=== PATIENT | female | born 1965 | race Caucasian/White ===

== ENCOUNTER 2020-09-17 10:50 | Outpatient (REF) | payer OTHER, SELFPAY ==
--- NOTE | 2020-09-17 10:58 | US_ITS ---
EXAMINATION: TARGETED LEFT BREAST ULTRASOUND CLINICAL INFORMATION: Palpable mass and skin dimpling COMPARISON: Mammography of same day and mammography dating back to June 06, 2013 TECHNIQUE: Targeted left breast ultrasound FINDINGS: Targeted left breast ultrasound was then performed. Corresponding to the retroareolar palpable region is a 7 x 6 mm simple appearing cyst. In the 6:00 position approximately 3 cm from the nipple there is an irregular marginated hypoechoic lesion with distal sound shadowing measuring approximately 1.8 x 1.1 x 1.7 cm in size. Results are discussed with the patient at time of visit. Breast Center navigator notified referring physician's office talking to [place]. US/US breast LT complete IMPRESSION: Suspicious left breast lesion for which ultrasound-guided core biopsy is recommended. ASSESSMENT: BI-RADS 4: Suspicious RECOMMENDATION: Ultrasound-guided core biopsy left breast lesion
--- NOTE | 2020-09-17 10:58 | MM_ITS ---
EXAMINATION: MM DIAGNOSTIC DIGITAL MAMMOGRAPHY, BILATERAL Targeted left breast ultrasound CLINICAL INFORMATION: Retroareolar palpable region left breast. Skin dimpling. The lifetime risk of breast cancer based on the Tyrer-Cuzick Model is 9.0%. COMPARISON: Mammography: August 29, 2019 and studies dating back to June 06, 2013 TECHNIQUE: Digital mammography is performed in craniocaudal and mediolateral oblique views along with computer-aided detection (CAD). Targeted left breast ultrasound. FINDINGS: The breasts are extremely dense, which lowers the sensitivity of mammography (ACR BI-RADS breast composition Category d). There is a stable parenchymal pattern of the right breast with no new abnormal dominant mass or suspicious grouping of microcalcifications identified. Within the inferior aspect of the left breast at approximately 6:00 position 3 cm from nipple there is a large region of architectural distortion measuring approximately 3 cm in diameter which appears to contain some calcifications. Targeted left breast ultrasound was then performed. Corresponding to the retroareolar palpable region is a 7 x 6 mm simple appearing cyst. In the 6:00 position approximately 3 cm from the nipple there is an irregular marginated hypoechoic lesion with distal sound shadowing measuring approximately 1.8 x 1.1 x 1.7 cm in size. Results are discussed with the patient at time of visit. Breast Center navigator notified referring physician's office talking to [place]. MM/MM diagnostic mammo BI IMPRESSION: Suspicious left breast lesion for which ultrasound-guided core biopsy is recommended. ASSESSMENT: BI-RADS 4: Suspicious RECOMMENDATION: Ultrasound-guided core biopsy left breast lesion
== END 2020-09-17 10:51 | disposition home or self-care (01) ==
LOC: HO.MAMMO 10:50
PROVIDERS: PCP Internal Medicine; Visit Provider Internal Medicine
DX: N63.20 Unspecified lump in the left breast, unspecified quadrant (principal)
CPT/HCPCS: 76641; 77066

== ENCOUNTER 2020-09-29 09:26 | Outpatient (REF) | payer OTHER, SELFPAY ==
--- NOTE | 2020-09-29 | MM_ITS ---
EXAMINATION: ULTRASOUND GUIDED CORE BIOPSY BREAST, LEFT POST PROCEDURE DIGITAL MAMMOGRAM, LEFT CLINICAL INFORMATION: Subtle architectural changes posterior inferior left breast with mild skin dimpling. COMPARISON: Mammography and targeted left breast ultrasound 09/17/2020. FINDINGS: Proper informed consent is obtained from the patient after discussion of the procedure, potential risks and complications, and alternatives. Patient was given an opportunity for questions. The patient appeared to understand. The patient consented to the procedure and signed the consent form. GUIDANCE: Ultrasound-guided; aseptic technique. LESION: Irregular hypoechoic area posterior 6:00 left breast measuring approximately 2.4 x 1.8 cm. No clear tissue plane with chest wall by ultrasound. APPROACH: Mediolateral. ANESTHESIA: 18 mL 1% lidocaine. DERMATOTOMY: Single skin pat dermatotomy performed. NEEDLE: 14-gauge Achieve core biopsy device with 13.5-gauge co-axial guide needle. CORES: 6. CLIP: HydroMARK; shape: butterfly. POST PROCEDURE UNILATERAL DIGITAL MAMMOGRAM: The post biopsy mammogram is performed in separate room using separate digital mammography equipment from the biopsy procedure. CC and ML views are obtained. The breasts are extremely dense, which lowers the sensitivity of mammography (breast composition category: d). The clip marker is in position. No gross hematoma. The patient tolerated the procedure well. No immediate complications. Home instructions reviewed with the patient. Final pathology results are pending. MM/MM diagnostic mammo unilat LT IMPRESSION: 1. Status post ultrasound-guided core biopsy left breast. 2. Clip placed: HydroMARK; shape: butterfly. 3. Pathology pending. An addendum report will be issued.
--- NOTE | ~2020-09-29 | US_ITS ---
Report was dictated on day of procedure 09/29/2020 and combined along with the post biopsy mammogram report under accession # [id number]. Exam was addended with pathology results on 10/05/2020. Report is copied and pasted below. ADDENDUM: Pathology results: -Invasive lobular carcinoma, MSBR grade 2. -ER positive, SC positive, HER-2 negative. Please see pathology report for comprehensive information regarding the specimen. Pathology results are considered concordant with imaging expectations. Results are called to medical office technology instructor (Rhona) for Dr. Alba on . EXAMINATION: ULTRASOUND GUIDED CORE BIOPSY BREAST, LEFT POST PROCEDURE DIGITAL MAMMOGRAM, LEFT CLINICAL INFORMATION: Subtle architectural changes posterior inferior left breast with mild skin dimpling. COMPARISON: Mammography and targeted left breast ultrasound 09/17/2020. FINDINGS: Proper informed consent is obtained from the patient after discussion of the procedure, potential risks and complications, and alternatives. Patient was given an opportunity for questions. The patient appeared to understand. The patient consented to the procedure and signed the consent form. GUIDANCE: Ultrasound-guided; aseptic technique. LESION: Irregular hypoechoic area posterior 6:00 left breast measuring approximately 2.4 x 1.8 cm. No clear tissue plane with chest wall by ultrasound. APPROACH: Mediolateral. ANESTHESIA: 18 mL 1% lidocaine. DERMATOTOMY: Single skin pat dermatotomy performed. NEEDLE: 14-gauge Achieve core biopsy device with 13.5-gauge co-axial guide needle. CORES: 6. CLIP: HydroMARK; shape: butterfly. POST PROCEDURE UNILATERAL DIGITAL MAMMOGRAM: The post biopsy mammogram is performed in separate room using separate digital mammography equipment from the biopsy procedure. CC and ML views are obtained. The breasts are extremely dense, which lowers the sensitivity of mammography (breast composition category: d). The clip marker is in position. No gross hematoma. The patient tolerated the procedure well. No immediate complications. Home instructions reviewed with the patient. Final pathology results are pending. US/US breast ndl core biopsy LT IMPRESSION: 1. Status post ultrasound-guided core biopsy left breast. 2. Clip placed: HydroMARK; shape: butterfly. 3. Pathology pending. An addendum report will be issued.
--- NOTE | 2020-09-29 09:38 | US_ITS ---
EXAMINATION: ULTRASOUND GUIDED CORE BIOPSY BREAST, LEFT POST PROCEDURE DIGITAL MAMMOGRAM, LEFT CLINICAL INFORMATION: Subtle architectural changes posterior inferior left breast with mild skin dimpling. COMPARISON: Mammography and targeted left breast ultrasound 09/17/2020. FINDINGS: Proper informed consent is obtained from the patient after discussion of the procedure, potential risks and complications, and alternatives. Patient was given an opportunity for questions. The patient appeared to understand. The patient consented to the procedure and signed the consent form. GUIDANCE: Ultrasound-guided; aseptic technique. LESION: Irregular hypoechoic area posterior 6:00 left breast measuring approximately 2.4 x 1.8 cm. No clear tissue plane with chest wall by ultrasound. APPROACH: Mediolateral. ANESTHESIA: 18 mL 1% lidocaine. DERMATOTOMY: Single skin pat dermatotomy performed. NEEDLE: 14-gauge Achieve core biopsy device with 13.5-gauge co-axial guide needle. CORES: 6. CLIP: HydroMARK; shape: butterfly. POST PROCEDURE UNILATERAL DIGITAL MAMMOGRAM: The post biopsy mammogram is performed in separate room using separate digital mammography equipment from the biopsy procedure. CC and ML views are obtained. The breasts are extremely dense, which lowers the sensitivity of mammography (breast composition category: d). The clip marker is in position. No gross hematoma. The patient tolerated the procedure well. No immediate complications. Home instructions reviewed with the patient. Final pathology results are pending.
== END 2020-09-29 09:27 | disposition home or self-care (01) ==
LOC: HO.MAMMO 09:26
PROVIDERS: PCP Internal Medicine; Visit Provider Surgery
DX: C50.812 Malignant neoplasm of overlapping sites of left female breast (principal); Z17.0 Estrogen receptor positive status [ER+]
CPT/HCPCS: 19083; 77065; 88305; 88342; 88360

== ENCOUNTER 2020-10-12 07:55 | Outpatient (REF) | payer OTHER, SELFPAY ==
--- NOTE | 2020-10-12 07:57 | MR_ITS ---
EXAMINATION: MR BREAST WITHOUT AND WITH CONTRAST, BILATERAL CLINICAL INFORMATION: Newly diagnosed left breast invasive lobular carcinoma. COMPARISON: Recent imaging reviewed. No previous breast MRI. TECHNIQUE: Imaging was performed with a dedicated breast coil. Prior to the administration of contrast, bilateral axial T1 and bilateral axial T2-weighted sequences were obtained. After the uneventful administration of?6.5 mL of Gadavist, dynamic contrast-enhanced VIBRANT series through the breasts in the axial plane were performed. Subtracted images were performed and reviewed. A delayed sagittal sequence through both breasts was acquired. Additionally, CAD post-processing, including maximum intensity projections, 3-D reconstructions and kinetic analysis, were performed an independent workstation and reviewed by the interpreting radiologist is a portion of this exam. FINDINGS: The patient's fibroglandular tissue demonstrates mild background enhancement. LEFT BREAST: There is prominent asymmetric nipple retraction. A large enhancing mass is identified along the 6 o'clock axis approximately 2.6 cm from the nipple. The mass measures at least 3.2 (AP) x 2.5 (CC) x 2.1 (transverse) cm. The anterior edge of the enhancement extends to within 1.0 cm of the base of the nipple. The closest skin margin is anterior. The distance to the pectoralis fascia is 2.5 cm. Review of the kinetics demonstrates plateau or type II enhancement. In the 8 o'clock position, 4.6 cm from the nipple, there is an enhancing focus with indistinct margins measuring 0.4 cm in size (image 86, series 110). This finding demonstrates similar plateau or type II enhancement and is suspicious for a satellite lesion. If this finding is included, the transverse measurement is at least 2.9 cm. In the 5 o'clock position, approximately 4 cm from the nipple, there is an irregular enhancing focus measuring 0.4 cm in size which also demonstrates type II enhancement (image 93, series 110). This finding is located approximately 4 mm lateral to the most lateral aspect of the dominant mass lesion. There are other enhancing foci within 1 cm of the index lesion. Within the 3 o'clock position, 2.8 cm from the nipple, there is a small enhancing focus measuring 0.3 cm in size which demonstrates plateau or type II enhancement and may represent an additional satellite lesion (image 73, series 110). In the 12 o'clock position, 2.0 cm from the nipple, there is an irregular enhancing mass measuring 0.8 cm in size which may represent an additional area of malignancy (image 61, series 110). Review of the T2-weighted images demonstrates several high signal intensity mostly subcentimeter structures consistent with cysts. RIGHT BREAST: In the 4 o'clock position of the right breast, 3.9 cm from the nipple, there is an area of eob-szuw-sfdg enhancement with indistinct margins measuring 0.8 cm in AP diameter (image 77, series 110). Finding is indeterminate. Suggest MRI-guided biopsy for further evaluation. There is diffuse background parenchymal enhancement in combination with numerous scattered foci of enhancement. An additional tiny irregular area of spf-ulhv-kpxv enhancement is identified at the 3 o'clock position, 2.8 cm from the nipple, measuring 0.5 cm in size (image 72, series 110). Again, suggest further evaluation with MRI-guided biopsy. No other definite suspicious wnj-wgvt-nxgz or mass-like enhancement. Review of the T2-weighted images demonstrates numerous subcentimeter high signal intensity structures consistent with cysts. Review of the kinetic images demonstrates no additional suspicious findings. There is no suspicious internal mammary chain or axillary adenopathy. Limited views of the chest and abdomen are unremarkable. MR/MR breast BI wo/w con IMPRESSION: 1. Known left breast carcinoma, 6 o'clock axis measuring up to at least 2.5 cm in size. Numerous adjacent enhancing foci are suspicious for satellite lesions, as described above. Additional suspicious enhancing mass in the 12 o'clock position of the left breast. 2. Left breast cancer with associated nipple retraction and close distance to the nipple areolar complex (1 cm). No clear-cut adenopathy. 3. At least 2 suspicious areas of yat-ejjf-utbo enhancement in the right breast at 4 o'clock and 3 o'clock. These would be amenable to MRI-guided biopsy. ASSESSMENT: LEFT BREAST: BI-RADS 4 - Suspicious abnormality - Biopsy should be considered. RIGHT BREAST: BI-RADS 4 - Suspicious abnormality - Biopsy should be considered. RECOMMENDATIONS: Depending on clinical and surgical management, suggest further evaluation of suspicious enhancing lesion in the left breast at 12 o'clock in addition to indeterminate areas of fxo-ljle-ydga enhancement in the right breast at 4 o'clock and 3 o'clock. If these are pursued with MRI-guided biopsy, the appointments will need to be as the right breast biopsies should be performed from a medial approach.
== END 2020-10-12 07:56 | disposition home or self-care (01) ==
LOC: HO.MRI 07:55
PROVIDERS: Visit Provider Surgery
DX: C50.912 Malignant neoplasm of unspecified site of left female breast (principal)
CPT/HCPCS: 77049; A9585

== ENCOUNTER → 2020-10-13 16:15 | Outpatient (BNVA) | payer OTHER, SELFPAY ==
--- NOTE | 2020-10-15 16:43 | PM.EVENT ---
Event Note Date of Service: 10/15/20 Event Note: She is scheduled to have the MRI guided biopsies of both the left and right breast done next week and will follow up with me on October 27. We discussed that it is not yet clear that she will be a candidate for lumpectomy but that based upon the size of the palpable area and her breast size, it may be difficult to perform a lumpectomy. There is a risk that the margins will not be clear. I am concerned that additional surgical treatment may be needed if lumpectomy is attempted. It is possible that mastectomy will be needed. We discussed this and discussed arranging consultation with the breast surgeon either at [facility] or at [facility]. When she was here in the office on 10/13/2020, we had discussed the option of neoadjuvant therapy to try to shrink the primary before attempting lumpectomy. She strongly prefers to undergo lumpectomy if at all possible. She requested oncology consultation. We will make arrangements for this.
== END ==
PROVIDERS: PCP Internal Medicine; Visit Provider Surgery
DX: Z76.89 Persons encountering health services in other specified circumstances (principal)

== ENCOUNTER 2020-10-22 07:14 | Outpatient (REF) | payer OTHER, SELFPAY ==
--- NOTE | 2020-10-22 | MM_ITS ---
EXAMINATION: MR GUIDED VACUUM-ASSISTED CORE BIOPSY BREAST, LEFT MR GUIDED VACUUM-ASSISTED CORE BIOPSY BREAST, RIGHT MM DIGITAL MAMMOGRAPHY POST BIOPSY, BILATERAL CLINICAL INFORMATION: Recent diagnosis invasive lobular cancer left breast. Postbiopsy MRI notes suspicious enhancing nodule 12:00 left breast and 2 smaller foci right medial breast suggested for sampling. COMPARISON: Mammography 09/17/2020, 09/29/2020, ultrasound left breast 09/17/2020, ultrasound-guided left breast biopsy 09/29/2020, MRI breasts without and with gadolinium contrast 10/12/2020. TECHNIQUE/PROCEDURE: Informed consent was obtained from the patient after discussion of the benefits, risks, and alternatives to biopsy today. Patient appeared to understand. Gave opportunity for questions. Patient signed consent form. Biopsy is performed under MRI guidance using breast surface coil. Imaging is performed without and with use of 6.5 mL Gadavist gadolinium contrast. [employer] introducer localization system is used with grid. LEFT: LESION: Anterior 12:00 left breast small nodular enhancement. LOCAL ANESTHESIA: 7.5 mL 1% lidocaine; 11 mL 1% lidocaine with epinephrine. NEEDLE: Sur[employer]ig[employer] Atec 9-gauge vacuum assisted core biopsy device. APPROACH: Lateral medial. CORES: 12. CLIP: TriMark cylinder shaped. RIGHT: Separate new biopsy supplies used for second site. LESION: There are 2 foci for suggested tissue sampling on recent MRI. The finding at 4:00 is not demonstrated and not sampled. Sampling performed at anterior 3:00 tiny nodular enhancement. LOCAL ANESTHESIA: 11 mL 1% lidocaine; 10 mL 1% lidocaine with epinephrine NEEDLE: Suros Atec 9-gauge vacuum assisted core biopsy device. APPROACH: Lateral medial. CORES: 6. CLIP: TriMark cylinder shaped. POSTPROCEDURE DIGITAL MAMMOGRAPHY, BILATERAL: Mammography is performed using FFDM mammography in bilateral CC and bilateral MLviews. The breasts are extremely dense, which lowers the sensitivity of mammography (ACR BI-RADS breast composition Category d). The clip markers are in position. No gross hematoma. The patient tolerated the procedure well. No immediate breast related complications. Home instructions reviewed with the patient. Final pathology results are pending. Procedure results called to director medical safety (Ольга) for Dr. Alba on 10/22/2020. MM/MM diagnostic mammo BI IMPRESSION: 1. Status post MRI guided vacuum-assisted core biopsy left breast 12:00 with clip placement. 2. Status post MRI guided vacuum-assisted core biopsy right breast 3:00 with clip placement. 3. MR finding at 4:00 position not visible to allow for sampling. This may be followed with MR breasts in 6-12 months. 4. Final pathology results pending. An addendum report will be issued.
--- NOTE | 2020-10-22 07:17 | MR_ITS ---
EXAMINATION: MR GUIDED VACUUM-ASSISTED CORE BIOPSY BREAST, LEFT MR GUIDED VACUUM-ASSISTED CORE BIOPSY BREAST, RIGHT MM DIGITAL MAMMOGRAPHY POST BIOPSY, BILATERAL CLINICAL INFORMATION: Recent diagnosis invasive lobular cancer left breast. Postbiopsy MRI notes suspicious enhancing nodule 12:00 left breast and 2 smaller foci right medial breast suggested for sampling. COMPARISON: Mammography 09/17/2020, 09/29/2020, ultrasound left breast 09/17/2020, ultrasound-guided left breast biopsy 09/29/2020, MRI breasts without and with gadolinium contrast 10/12/2020. TECHNIQUE/PROCEDURE: Informed consent was obtained from the patient after discussion of the benefits, risks, and alternatives to biopsy today. Patient appeared to understand. Gave opportunity for questions. Patient signed consent form. Biopsy is performed under MRI guidance using breast surface coil. Imaging is performed without and with use of 6.5 mL Gadavist gadolinium contrast. [employer] introducer localization system is used with grid. LEFT: LESION: Anterior 12:00 left breast small nodular enhancement. LOCAL ANESTHESIA: 7.5 mL 1% lidocaine; 11 mL 1% lidocaine with epinephrine. NEEDLE: Sur[employer] Atec 9-gauge vacuum assisted core biopsy device. APPROACH: Lateral medial. CORES: 12. CLIP: TriMark cylinder shaped. RIGHT: Separate new biopsy supplies used for second site. LESION: There are 2 foci for suggested tissue sampling on recent MRI. The finding at 4:00 is not demonstrated and not sampled. Sampling performed at anterior 3:00 tiny nodular enhancement. LOCAL ANESTHESIA: 11 mL 1% lidocaine; 10 mL 1% lidocaine with epinephrine NEEDLE: Suros Atec 9-gauge vacuum assisted core biopsy device. APPROACH: Lateral medial. CORES: 6. CLIP: TriMark cylinder shaped. POSTPROCEDURE DIGITAL MAMMOGRAPHY, BILATERAL: Mammography is performed using FFDM mammography in bilateral CC and bilateral MLviews. The breasts are extremely dense, which lowers the sensitivity of mammography (ACR BI-RADS breast composition Category d). The clip markers are in position. No gross hematoma. The patient tolerated the procedure well. No immediate breast related complications. Home instructions reviewed with the patient. Final pathology results are pending. Procedure results called to biomedical instrument technician (Ольга) for Dr. Alba on 10/22/2020. MR/MR guided breast biopsy RT IMPRESSION: 1. Status post MRI guided vacuum-assisted core biopsy left breast 12:00 with clip placement. 2. Status post MRI guided vacuum-assisted core biopsy right breast 3:00 with clip placement. 3. MR finding at 4:00 position not visible to allow for sampling. This may be followed with MR breasts in 6-12 months. 4. Final pathology results pending. An addendum report will be issued.
--- NOTE | 2020-10-22 07:17 | MR_ITS ---
EXAMINATION: MR GUIDED VACUUM-ASSISTED CORE BIOPSY BREAST, LEFT MR GUIDED VACUUM-ASSISTED CORE BIOPSY BREAST, RIGHT MM DIGITAL MAMMOGRAPHY POST BIOPSY, BILATERAL CLINICAL INFORMATION: Recent diagnosis invasive lobular cancer left breast. Postbiopsy MRI notes suspicious enhancing nodule 12:00 left breast and 2 smaller foci right medial breast suggested for sampling. COMPARISON: Mammography 09/17/2020, 09/29/2020, ultrasound left breast 09/17/2020, ultrasound-guided left breast biopsy 09/29/2020, MRI breasts without and with gadolinium contrast 10/12/2020. TECHNIQUE/PROCEDURE: Informed consent was obtained from the patient after discussion of the benefits, risks, and alternatives to biopsy today. Patient appeared to understand. Gave opportunity for questions. Patient signed consent form. Biopsy is performed under MRI guidance using breast surface coil. Imaging is performed without and with use of 6.5 mL Gadavist gadolinium contrast. [employer] introducer localization system is used with grid. LEFT: LESION: Anterior 12:00 left breast small nodular enhancement. LOCAL ANESTHESIA: 7.5 mL 1% lidocaine; 11 mL 1% lidocaine with epinephrine. NEEDLE: [employer] Atec 9-gauge vacuum assisted core biopsy device. APPROACH: Lateral medial. CORES: 12. CLIP: TriMark cylinder shaped. RIGHT: Separate new biopsy supplies used for second site. LESION: There are 2 foci for suggested tissue sampling on recent MRI. The finding at 4:00 is not demonstrated and not sampled. Sampling performed at anterior 3:00 tiny nodular enhancement. LOCAL ANESTHESIA: 11 mL 1% lidocaine; 10 mL 1% lidocaine with epinephrine NEEDLE: Suros Atec 9-gauge vacuum assisted core biopsy device. APPROACH: Lateral medial. CORES: 6. CLIP: TriMark cylinder shaped. POSTPROCEDURE DIGITAL MAMMOGRAPHY, BILATERAL: Mammography is performed using FFDM mammography in bilateral CC and bilateral MLviews. The breasts are extremely dense, which lowers the sensitivity of mammography (ACR BI-RADS breast composition Category d). The clip markers are in position. No gross hematoma. The patient tolerated the procedure well. No immediate breast related complications. Home instructions reviewed with the patient. Final pathology results are pending. Procedure results called to biomedical equipment support specialist (Ольга) for Dr. Alba on 10/22/2020. MR/MR guided breast biopsy LT IMPRESSION: 1. Status post MRI guided vacuum-assisted core biopsy left breast 12:00 with clip placement. 2. Status post MRI guided vacuum-assisted core biopsy right breast 3:00 with clip placement. 3. MR finding at 4:00 position not visible to allow for sampling. This may be followed with MR breasts in 6-12 months. 4. Final pathology results pending. An addendum report will be issued.
[2020-10-22] MEDS: Lidocaine HCl 1%/Epi 1:100,000 20 ML VIAL INFILTRATI (10:16)
[2020-10-22] MEDS: Lidocaine HCl 1 % MPF 5 ML VIAL SUBCUT ×4 (10:19→10:25)
== END 2020-10-22 07:15 | disposition home or self-care (01) ==
LOC: HO.MRI 07:14
PROVIDERS: Visit Provider Surgery
DX: R92.8 Other abnormal and inconclusive findings on diagnostic imaging of breast (principal)
CPT/HCPCS: 19083; 19085; 77066; 88305; A4648; A9585

== ENCOUNTER → 2020-10-27 16:07 | Outpatient (BNVA) | payer OTHER, SELFPAY | PROVIDERS: PCP Internal Medicine; Visit Provider Surgery ==

== ENCOUNTER 2021-01-08 14:54 | Outpatient (REF) | payer OTHER, SELFPAY ==
--- NOTE | ~2021-01-08 | MM_ITS ---
EXAMINATION: BONE DENSITOMETRY CLINICAL INDICATION: Malignant neoplasm of unspecified site of left female breast. COMPARISON: This is the patient's baseline examination. TECHNIQUE: Using a Cloudmeter DXA System (software version: 13.1) manufactured by [employer], dual-energy x-ray absorptiometry was performed of the lumbar spine and left hip. The images are of good technical quality. Summary results are attached. FINDINGS: AP SPINE L1-L4: BMD 1.046 g/cm2, Z-score -0.3, T-score -1.1, osteopenia. LEFT FEMUR, NECK: BMD 0.812 g/cm2, Z-score -0.6, T-score -1.6, osteopenia. LEFT FEMUR, TOTAL: BMD 0.821 g/cm2, Z-score -0.8, T-score -1.5, osteopenia. IDENTIFIED RISK FACTORS: Low calcium intake. HISTORY OF FRACTURE: None listed. MEDICATIONS: Calcium supplements or multivitamin, vitamin D, ERT/SERMS. MM/XR DEXA axial skeleton IMPRESSION: 1. DIAGNOSIS: Osteopenia based on the lowest T-score value of -1.6 in the femoral neck applying World Health Organization criteria. 2. 10-YEAR FRACTURE RISK PREDICTION, FRAX: Major osteoporotic fracture (clinical spine, forearm, hip or shoulder) 6.7%. Hip fracture 0.6%. 3. Treatment Recommendations: NOF guidelines recommend consideration for treatment in postmenopausal women and men age 50 and older presenting with the following: -A hip or vertebral (clinical or morphometric) fracture. -T-score less than or equal to -2.5 at the femoral neck or spine after appropriate evaluation to exclude secondary causes. -Low bone mass at the hip or spine and a 10-year fracture probability by FRAX of greater than or equal to 3% for hip fracture or greater than or equal to 20% for major osteoporotic fracture based on the [place] adapted WHO algorithm. 4. Other Recommendations: All treatment decisions require clinical judgment and consideration of individual patient factors, including patient preferences, comorbidities, previous drug use, risk factors not captured in the FRAX model (e.g. frailty, falls, vitamin D deficiency, increased bone turnover, interval significant decline in bone density) and possible under or overestimation of fracture risk by FRAX. Additional medical evaluation for secondary cause of low bone mineral density may be appropriate. FUTURE SCAN RECOMMENDATION: People with diagnosed cases of osteoporosis or at high risk for fracture should have regular bone mineral density tests. For patients eligible for Medicare, routine testing is allowed once every 2 years. The testing frequency can be increased to one year for patients who have rapidly progressing disease, those who are receiving or discontinuing medical therapy to restore bone mass, or have additional risk factors.
== END 2021-01-08 14:55 | disposition home or self-care (01) ==
LOC: HO.MAMMO 14:54
PROVIDERS: Visit Provider Internal Medicine
DX: Z13.820 Encounter for screening for osteoporosis (principal); C50.912 Malignant neoplasm of unspecified site of left female breast; E03.9 Hypothyroidism, unspecified; E58 Dietary calcium deficiency; Z17.0 Estrogen receptor positive status [ER+]; Z78.0 Asymptomatic menopausal state
CPT/HCPCS: 77080

== ENCOUNTER 2021-04-30 08:27 | Outpatient (REF) | payer OTHER, SELFPAY ==
[2021-04-30 12:16] LABS: Alanine Aminotransferase 41 U/L (0-31); Anion Gap 13 (12-20); Aspartate Amino Transferase 29 U/L (5-31); Blood Urea Nitrogen 11 mg/dL (9-16); Carbon Dioxide 27 mmol/L (22-29); Chloride 105 mmol/L (96-108); Cholesterol 198 mg/dL; Estimated Glomerular Filt Rate > 60; Glucose Fasting 95 mg/dL (60-99); HDL Cholesterol 59 mg/dL; LDL Cholesterol Calculated 119 mg/dl; Potassium 4.1 mmol/L (3.3-5.1); Sodium 141 mmol/L (135-145); Triglycerides 101 mg/dL
[2021-04-30 12:20] LABS: Free T4 (Free Thyroxine) 1.03 ng/dL (0.71-1.85)
== END 2021-04-30 08:28 | disposition home or self-care (01) ==
LOC: HO.HMGCLDS 08:27
PROVIDERS: PCP Internal Medicine; Visit Provider Internal Medicine
DX: E03.9 Hypothyroidism, unspecified (principal); E78.2 Mixed hyperlipidemia; I10 Essential (primary) hypertension
CPT/HCPCS: 36415; 80048; 80061; 84439; 84443; 84450; 84460

== ENCOUNTER 2021-07-05 11:09 | Outpatient (REF) | payer OTHER, SELFPAY ==
[2021-07-08 05:26] LABS: HPV mRNA E6/E7 rflx Not Detected (Not Detected)
== END 2021-07-05 11:10 | disposition home or self-care (01) ==
LOC: HO.LNP 11:09
PROVIDERS: Visit Provider Internal Medicine
DX: Z12.4 Encounter for screening for malignant neoplasm of cervix (principal); Z11.51 Encounter for screening for human papillomavirus (HPV)
CPT/HCPCS: 87624; 88142

== ENCOUNTER 2022-01-20 09:12 | Outpatient (REF) | payer OTHER, SELFPAY ==
[2022-01-20 11:48] LABS: Alanine Aminotransferase 37 U/L (0-31); Anion Gap 12 (12-20); Aspartate Amino Transferase 27 U/L (5-31); Blood Urea Nitrogen 15 mg/dL (9-16); Calcium 10.3 mg/dL (8.4-10.2); Carbon Dioxide 29 mmol/L (22-29); Chloride 104 mmol/L (96-108); Cholesterol 209 mg/dL; Estimated Glomerular Filt Rate > 60; Glucose Fasting 94 mg/dL (60-99); HDL Cholesterol 60 mg/dL; LDL Cholesterol Calculated 125 mg/dl; Potassium 4.4 mmol/L (3.3-5.1); Sodium 141 mmol/L (135-145); Triglycerides 122 mg/dL
[2022-01-20 11:49] LABS: Free T4 (Free Thyroxine) 1.25 ng/dL (0.71-1.85); Thyroid Stimulating Hormone 0.12 uIU/mL (0.32-4.0); Vitamin D 25-OH Total 43.4 ng/mL (>30)
== END 2022-01-20 09:13 | disposition home or self-care (01) ==
LOC: HO.HMGCLDS 09:12
PROVIDERS: PCP Internal Medicine; Visit Provider Internal Medicine
DX: C50.912 Malignant neoplasm of unspecified site of left female breast (principal); E03.9 Hypothyroidism, unspecified; E78.2 Mixed hyperlipidemia; M85.89 Other specified disorders of bone density and structure, multiple sites; N95.9 Unspecified menopausal and perimenopausal disorder; I10 Essential (primary) hypertension; Z17.0 Estrogen receptor positive status [ER+]
CPT/HCPCS: 36415; 80048; 80061; 82306; 84439; 84443; 84450; 84460

== ENCOUNTER 2022-08-19 11:22 | Outpatient (REF) | payer OTHER, SELFPAY ==
[2022-08-19 13:53] LABS: MANUAL DIFF FLAG NO
[2022-08-19 13:58] LABS: Basophils Absolute Auto 0.1 X10*3/uL (0.0-0.2); Basophils Percent Auto 0.9 % (0-2); Eosinophils Absolute Auto 0.1 X10*3/uL (0.0-0.4); Eosinophils Percent Auto 1.2 % (0-4); Hematocrit 44.4 % (37.0-47.0); Imm Gran Abs Auto 0.03 X10*3/uL (0.00-0.03); Imm Gran Pct Auto 0.4 % (0.0-0.4); Lymphocytes Absolute Auto 2.2 X10*3/uL (1.2-4.9); Lymphocytes Percent Auto 33.4 % (20-40); Mean Corpuscular HGB Conc 31.5 g/dl (31.0-35.0); Mean Corpuscular Hemoglobin 29.2 pg (27.0-33.0); Mean Corpuscular Volume 92.7 fL (80.0-98.0); Mean Platelet Volume 9.7 fL (9.4-12.3); Monocytes Absolute Auto 0.5 X10*3/uL (0.1-1.2); Neutrophils Absolute Auto 3.8 x10*3/uL (2.0-8.3); Neutrophils Percent Auto 56.1 % (45-73); Platelet Count 226 X10*3/uL (160-400); Red Blood Count 4.79 X10*6/uL (4.20-5.50); Red Cell Distribution Width 11.9 % (11.0-16.0); White Blood Count 6.7 X10*3/uL (4.8-10.8)
[2022-08-19 14:46] LABS: Alanine Aminotransferase 40 U/L (0-31); Anion Gap 12 (12-20); Aspartate Amino Transferase 26 U/L (5-31); Blood Urea Nitrogen 17 mg/dL (9-16); Calcium 10.2 mg/dL (8.4-10.2); Carbon Dioxide 30 mmol/L (22-29); Chloride 104 mmol/L (96-108); Cholesterol 230 mg/dL; Estimated Glomerular Filt Rate > 60; Glucose Fasting 90 mg/dL (60-99); HDL Cholesterol 62 mg/dL; LDL Cholesterol Calculated 145 mg/dl; Potassium 4.4 mmol/L (3.3-5.1); Sodium 142 mmol/L (135-145); Thyroid Stimulating Hormone 0.77 uIU/mL (0.32-4.0); Triglycerides 116 mg/dL; Vitamin D 25-OH Total 44.4 ng/mL (>30)
[2022-08-19 17:38] LABS: Free T4 (Free Thyroxine) 1.04 ng/dL (0.71-1.85)
== END 2022-08-19 11:23 | disposition home or self-care (01) ==
LOC: HO.HMGCLDS 11:22
PROVIDERS: PCP Internal Medicine; Visit Provider Internal Medicine
DX: Z00.01 Encounter for general adult medical examination with abnormal findings (principal); E03.9 Hypothyroidism, unspecified; E78.2 Mixed hyperlipidemia; C50.919 Malignant neoplasm of unspecified site of unspecified female breast; M85.89 Other specified disorders of bone density and structure, multiple sites; F41.1 Generalized anxiety disorder; Z17.0 Estrogen receptor positive status [ER+]
CPT/HCPCS: 36415; 80048; 80061; 82306; 84439; 84443; 84450; 84460; 85025

== ENCOUNTER 2023-08-28 07:58 | Outpatient (AMB) | payer OTHER, SELFPAY ==
--- NOTE | 2023-08-28 08:00 | A.OFFPC_ITS ---
Vital Signs 08/28/23 08:03 Height 5 ft 2 in Weight 132 lb 2 oz BMI 24.2 BP 118/86 Blood Pressure Location Lt brachial Position Sitting Pulse 64 Pulse Source Pulse Oximeter Pulse Oximetry (%) 99 Oxygen Delivery Method Room Air Intake Visit Reasons: Annual PE Intake Note: pt is here for her Annual PE pt would like her Flu vaccine today Allergies dexamethasone Adverse Reaction (Unknown, Verified 08/28/23 08:11) unknown Cats, Dogs Allergy (Unknown, Uncoded 08/28/23 08:11) unknown mold Allergy (Unknown, Uncoded 08/28/23 08:11) unknown Medication List - Last Reconciled 08/28/23 by Matilde Cerrato MD calcium carbonate (Calcium) 600 mg PO DAILY letrozole 2.5 mg PO DAILY levothyroxine 75 mcg PO QAM loratadine (Claritin) 10 mg PO DAILY mometasone 0.1% 1 appl topical DAILY 10 days montelukast (Singulair) 10 mg PO DAILY bllgmlflqshk-ohrj-kkgou acid 18-400 mg-mcg (Multi-Day with Iron) 1 tab PO DAILY omega-3 fatty acids (Fish Oil Concentrate) 1,000 mg PO DAILY rosuvastatin 5 mg PO DAILY sertraline 75 mg (1.5 x 50 mg) PO DAILY 90 days Tobacco use date assessed: 08/28/23 Dental Screening Dental Screen Date: 08/28/23 Did you have a dental visit in the last 12 months?: Yes Did you have a dental problem in the last 6 months where you did not have access to dental care?: No Was dental information given to patient?: Patient has dentist HPI Annual PE HPI Details 57 year old lady with history of lobula r carcinoma of the left breast status post mastectomy and breast reconstructive surgery, currently being followed at [facility], and has been placed on letrozole which she has been on now for 2 years She has mixed dyslipidemia, acquired hypothyroidism , and environmental and seasonal allergies, currently stable and controlled on present treatment. She also has osteopenia in both her lower back and left hip and femur, as noted on bone density scan done last year currently taking calcium carbonate and multivitamins. No history of fractures. She is up-to-date screening colonoscopy done by Dr. Coronel 12/20/2018 with normal findings, to be repeated again in 10 years, and has had a Pap smear in 2020 which showed atrophic changes, negative for any intraepithelial malignancy.. Patient states that they so on nodule on her lung when she had her last breast MRI and the CT of chest showed the same finding. She is supposed to get biopsy of the nodule, waiting for insurance approval. She has generalized anxiety disorder currently on sertraline. Has been having more anxiety attacks lately due to problems at work. She states that the sertraline has been helping, does not want to adjust the dosem, declines referral for counseling. [facility] Medical History History of left breast cancer Annual visit for general adult medical examination with abnormal findings Osteopenia of multiple sites Generalized anxiety disorder Lobular carcinoma of breast, stage 2, estrogen receptor positive Environmental and seasonal allergies Acquired hypothyroidism Mixed dyslipidemia Asthma Surgical History Hx of left mastectomy History of breast biopsy Hx of LASIK Hx of tonsillectomy Status post correction of deviated nasal septum Family History Maternal Grandmother History of lung cancer History of liver cancer Maternal Aunt History of breast cancer History of liver cancer History of thyroid cancer Paternal Uncle History of bone cancer Family/Other Leukemia Maternal Grandfather Heart attack Mother Heart attack COPD (chronic obstructive pulmonary disease) Diverticulitis History of creation of ostomy HTN (hypertension) Paternal Aunt Heart attack Father COPD (chronic obstructive pulmonary disease) Depression Alcoholism Substance use disorder Mental health disorder Sister History of lung cancer Asthma Substance use disorder Mental health disorder Brother Skin cancer Daughter No problems noted. Daughter No problems noted. Paternal Grandfather Substance use disorder Social History Household Members: Children Household Members Other:: 3 Housing: House Are you a primary certified social workers in health care to a significant other at home: No Alcohol intake: current Alcohol intake frequency: holidays/special occasions only Alcohol type: wine Patient Tobacco Use Status: Never used Tobacco e-Cigarette/Vaping Use: Never Used Second Hand Smoke Exposure: No service: No Current occupational status: employed Cognitive needs: No Hearing needs: No Vision needs: No Female Reproductive History Menstrual Age of Menarche: 14 Questionnaire PHQ-9 Over the last 2 weeks, how often have you been bothered by any of the following problems? 1. Little interest or pleasure in doing things: several days 2. Feeling down, depressed, or hopeless: several days 3. Trouble falling or staying asleep, or sleeping too much: more than half the days 4. Feeling tired or having little energy: more than half the days 5. Poor appetite or overeating: not at all 6. Feeling bad about yourself - or that you are a failure or have let yourself or your family down: more than half the days 7. Trouble concentrating on things, such as reading the newspaper or watching television: more than half the days 8. Moving or speaking so slowly that other people could have noticed. Or the opposite - being so fidgety or restless that you have been moving around a lot more than usual: not at all 9. Thoughts that you would be better off or of hurting yourself in some way: not at all Total score: 10 Depression Screening Interpretation: Positive Depression Screening Follow-up: Existing condition and In treatment (Declined referral for counseling, states sertraline has been helping) Depression Screening Done: Yes 70458 - PHQ-9 Billing: Yes Source: Developed by Drs. Davide Mcqueen, Charline Chicas, Carlos Eduardo Umanzor and colleagues, with an educational juana from [employer]. Thrive Questionnaire Date Thrive assessed: 09/14/22 I am a: Patient What is your living situation today?: I have a steady place to live Within the past 12 months, did the food you bought not last and you didn't have the money to get more?: Never true Within the past 12 months, did you worry whether your food would run out before you got money to buy more?: Never true Do you have trouble paying for medicines?: No Do you have trouble getting transportation to medical appointments?: No Do you have trouble paying your heating and electricity bill?: No Do you have trouble taking care of your child, family member or friend?: No Do you have trouble with day-to-day activities such as bathing, preparing meals, shopping, managing finances, etc.?: No Are you currently unemployed and looking for a job?: No Are you interested in more education?: No AUDIT C Alcohol Use Questionnaire (AUDIT-C) 1. How often do you have a drink containing alcohol?: 2-4 times a month 2. How many drinks containing alcohol do you have on a typical day when you are drinking?: 1 or 2 3. How often do you have six or more drinks on one occasion?: Never Total Score: 2 MANUELITO-7 AMB Questionnaire MANUELITO-7 Date MANUELITO - 7 assessed: 08/28/23 Feeling nervous, anxious, or on edge: 3 = Nearly every day Not being able to stop or control worryin = Nearly every day Worrying too much about different things: 3 = Nearly every day Trouble relaxin = Nearly every day Being so restless that it is hard to sit still: 2 = More than half the days Becoming easily annoyed or irritable: 2 = More than half the days Feeling afraid as if something awful might happen: 2 = More than half the days Total MANUELITO-7 score (0-4 normal; 5-9 mild; 10-14 moderate; 15-21 severe): 18 Source: Developed by Drs. Davide Mcqueen, Charline Chicas, Carlos Eduardo Umanzor and colleagues, with an educational juana from [employer]. MANUELITO-7 Assessment Billing MANUELITO-7 Assessment Tool: MANUELITO-7 Assessment 39882 Review of Systems Const Denies body aches, Denies fever(s), Denies headache(s) and Denies weakness Eyes Reports change in vision (With reading) ENT Denies dizziness, Denies headache(s), Denies nasal discharge and Denies sore throat Card Denies chest pain, Denies lightheadedness and Denies dyspnea Resp Denies chest congestion, Denies cough and Denies dyspnea GI Denies abdominal pain, Denies change in bowel habits and Denies heartburn Reports no additional complaints Musc Reports stiffness Skin/Breast Denies lesions and Denies rash Neuro Denies dizziness, Denies headache(s) and Denies weakness Psych Reports no additional complaints Endo Reports no additional complaints Paras/Lymph Reports no additional complaints Aller/Immun Reports no additional complaints Physical exam (Primary Care) Vital Signs: Last Vital Signs Pulse 64 08/28/23 08:03 BP 118/86 08/28/23 08:03 Pulse Ox 99 08/28/23 08:03 Oxygen Delivery Method Room Air 08/28/23 08:03 BMI result Body Mass Index 24.2 Tobacco/Smoking Status: Tobacco use Status Tobacco use date assessed 08/28/23 08/28/23 08:09 Patient Tobacco Use Status Never used Tobacco 08/28/23 08:02 e-Cigarette/Vaping Use Never Used 08/28/23 08:02 PHQ-9: PHQ-9 Score PHQ-9: Total score 10 08/28/23 08:53 Depression Screening Interpretation: Positive Depression Screening Follow-up: Existing condition and In treatment (Declined referral for counseling, states sertraline has been helping) Thrive Assessment: Date of Thrive Assessment Date Thrive assessed 09/14/22 08/28/23 08:48 Const General: no acute distress Orientation/consciousness: patient oriented x3 Limitations: no limitations HENMT Ears: hearing grossly normal bilaterally, external ears normal, TM's normal bilaterally and EAC's normal General nose exam: Normal external nose present and No nasal discharge present Mouth: Normal oral and palatal mucosa present, oropharynx normal and moist mucous membranes Eyes General: appearance normal, both eyes and all related structures Conjunctivae: conjunctivae normal Pupils: Equal, round and reactive pupils present EOM: EOMs intact bilaterally Neck Neck: Yes full ROM, Yes no lymphadenopathy and Yes supple Chest Other: Breast implant left, no mass palpated on right breast, no abnormal nipple discharge in right noted Breast/axilla palpation: normal palpation of the axillae Resp Effort & Inspection: normal respiratory effort and able to speak in complete sentences Auscultation: clear to auscultation bilaterally Cardio Rate: regular rate Rhythm: regular rhythm Heart sounds: S1 normal heart sound present and S2 normal heart sound present GI Inspection: Yes normal to inspection Palpation (GI): Soft to palpation, Firmness to palpation present (GI), nontender and no masses Auscultation: normal bowel sounds General: Yes no CVA tenderness Back/Spine/Pelvis Back: no CVA tenderness Skin General skin exam: no rashes or lesions noted Neuro General: patient oriented x3, gait normal, tone normal, moves all extremities, Normal light touch and pain sensation and no focal motor deficits Cranial nerves: Yes Equal, round and reactive pupils present Cognition (Neuro): normal cognition Gait exam (Neuro): Normal gait present Motor exam (neuro): 5/5 motor strength present throughout Extrem Other: No gross bone deformity no joint swelling noted, full range of motion in all joints Psych Appearance: grossly normal Mental Status: mental status grossly normal Speech and movement: Normal speech and movement present Affect: normal affect Attitude: cooperative Thought process: Normal thought process present Office Procedures Flu Questionnaire Does the patient have a severe egg allergy?: No Does the patient have severe life threatening allergies?: No Does the patient have a fever or illness today?: No Has the patient ever had Guillain-[place] Syndrome?: No Has the patient ever had any past reaction to a flu shot?: No Immunizations flu vacc [id number] 6mos up(PF) 60 mcg(15 mcgx4)/0.5 mL IM syringe Performing Provider: Matilde Cerrato MD Performing Location: [facility] Administered by: Makenzie Beach CMA on 08/28/23 08:25 Dose Route Admin Location Dispensed Lot Number Expiration Date NDC Manager Culture 0.5 mL IM Right Deltoid 0.5 mL [id number] 04/07/24 [id number] [employer] VIS Given Date VIS Provided VIS Publication Date 08/28/23 Single Vaccine 21 Eligibility Eligibility Date Funding Source Not [facility] Eligible 08/28/23 Private Assessment and Plan Assessment & Plan (1) Annual visit for general adult medical examination with abnormal findings: Code(s): Z00.01 - Encounter for general adult medical examination with abnormal findings Plan: Will check appropriate labs. Continue with regular dental visit every 6 months and regular eye exams, at least every 2 years. Take adequate calcium in diet and vitamin-D 3 at 2000 IU per cap once a day, in addition to weight-bearing exercises to help maintain good muscle tone and weight control. Instructed to do self-breast exam, and continue with yearly mammogram, gets at [facility]. Bone density scan ordered up-to-date with her screening colonoscopy due again in 2028. Flu vaccine given, recommended to get her shingles vaccination and pneumonia vaccine. Declined getting flu further COVID vaccinations. (2) Osteopenia of multiple sites: Code(s): M85.89 - Other specified disorders of bone density and structure, multiple sites Plan: Repeat bone density scan ordered. Take adequate calcium from dietary sources, and start taking idex-jtb-bptghts vitamin D3 at 2000 units daily. Will check Vitamin-D and calcium level (3) Environmental and seasonal allergies: Code(s): J30.89 - Other allergic rhinitis Plan: Continue with montelukast 10 mg daily and loratadine 10 mg daily (4) Acquired hypothyroidism: Code(s): E03.9 - Hypothyroidism, unspecified Plan: TSH and free T4 ordered, in the meantime continue with current dose of levothyroxine (5) Mixed dyslipidemia: Code(s): E78.2 - Mixed hyperlipidemia Plan: Recommended continuing with rosuvastatin 5 mg daily, fasting lipid panel ordered, stressed importance of following a low-cholesterol diet and getting regular exercise. (6) Generalized anxiety disorder: Code(s): F41.1 - Generalized anxiety disorder Plan: Continue sertraline 75 mg daily, declines referral for counseling. (7) Needs flu shot: Code(s): Z23 - Encounter for immunization Plan: Flu vaccine given (8) History of left breast cancer: Code(s): Z85.3 - Personal history of malignant neoplasm of breast Plan: Currently followed at [facility], currently on letrozole. Orders: Orders Alanine Aminotransferase Today E03.9 - Hypothyroidism, unspecified, E78.2 - Mixed hyperlipidemia, F41.1 - Generalized anxiety disorder, J30.89 - Other al lergic rhinitis, M85.89 - Other specified disorders of bone density and structure, multiple sites, Z00.01 - Encounter for general adult medical examination with abnormal findings Aspartate Amino Transferase Today E03.9 - Hypothyroidism, unspecified, E78.2 - Mixed hyperlipidemia, F41.1 - Generalized anxiety disorder, J30.89 - Other allergic rhinitis, M85.89 - Other specified disorders of bone density and structure, multiple sites, Z00.01 - Encounter for general adult medical examination with abnormal findings Free T4 (Free Thyroxine) 3 Months E03.9 - Hypothyroidism, unspecified, E78.2 - Mixed hyperlipidemia, F41.1 - Generalized anxiety disorder, J30.89 - Other allergic rhinitis, M85.89 - Other specified disorders of bone density and stru cture, multiple sites, Z00.01 - Encounter for general adult medical examination with abnormal findings Glucose Fasting Today E03.9 - Hypothyroidism, unspecified, E78.2 - Mixed hyperlipidemia, F41.1 - Generalized anxiety disorder, J30.89 - Other allergic rhinitis, M85.89 - Other specified disorders of bone density and structure, multiple sites, Z00.01 - Encounter for general adult medical examination with abnormal findings Vitamin D 25-OH Total Today E03.9 - Hypothyroidism, unspecified, E78.2 - Mixed hyperlipidemia, F41.1 - Generalized anxiety disorder, J30.89 - Other allergic rhinitis, M85.89 - Other specified disorders of bone density and structure, multiple sites, Z00.01 - Encounter for general adult medical examination with abnormal findings Influenza [id number] Immunization Today Z23 - Encounter for immunization Lipid Panel Today E03.9 - Hypothyroidism, unspecified, E78.2 - Mixed hyperlipidemia, F41.1 - Generalized anxiety disorder, J30.89 - Other allergic rhinitis, M85.89 - Other specified disorders of bone density and structure, multiple sites, Z00.01 - Encounter for general adult medical examination with abnormal findings Thyroid Stimulating Hormone Today E03.9 - Hypothyroidism, unspecified, E78.2 - Mixed hyperlipidemia, F41.1 - Generalized anxiety disorder, J30.89 - Other allergic rhinitis, M85.89 - Other specified disorders of bone density and structure, multiple sites, Z00.01 - Encounter for general adult medical examination with abnormal findings XR DEXA axial skeleton Today M85.89 - Other specified disorders of bone density and structure, multiple sites, Z78.0 - Asymptomatic menopausal state Coding Level of Care Code Est Pt Prev Care 40-64y(58411) Diagnoses Annual visit for general adult medical examination with abnormal findings Z00.01 Osteopenia of multiple sites M85.89 Environmental and seasonal allergies J30.89 Acquired hypothyroidism E03.9 Mixed dyslipidemia E78.2 Generalized anxiety disorder F41.1 Needs flu shot Z23 History of left breast cancer Z85.3 Additional Codes MANUELITO-7 Assessment Billing - MANUELITO-7 Assessment Tool: MANUELITO-7 Assessment 70144 ([id number])
[2023-08-28 08:03] VITALS: BP 118/86; PULSE 64; O2SAT 99; BMI 24.2
== END 2023-08-28 09:49 | disposition home or self-care (01) ==
PROVIDERS: Visit Provider Internal Medicine
DX: Z00.00 Encounter for general adult medical examination without abnormal findings (principal); M85.89 Other specified disorders of bone density and structure, multiple sites; J30.89 Other allergic rhinitis; Z23 Encounter for immunization; E03.9 Hypothyroidism, unspecified; E78.2 Mixed hyperlipidemia; F41.1 Generalized anxiety disorder; Z85.3 Personal history of malignant neoplasm of breast
CPT/HCPCS: 90471; 90686; 96127; 99396

== ENCOUNTER 2023-08-28 08:43 | Outpatient (REF) | payer OTHER, SELFPAY ==
[2023-08-28 12:22] LABS: Alanine Aminotransferase 27 U/L (0-31); Aspartate Amino Transferase 22 U/L (5-31); Cholesterol 221 mg/dL (<200); Glucose Fasting 106 mg/dL (60-99); HDL Cholesterol 60 mg/dL (>40); LDL Cholesterol Calculated 128 mg/dL (<100); Thyroid Stimulating Hormone 1.35 uIU/mL (0.32-4.0); Triglycerides 165 mg/dL (<150); Vitamin D 25-OH Total 58.5 ng/mL (>30)
== END 2023-08-28 08:44 | disposition home or self-care (01) ==
LOC: HO.HMGCLDS 08:43
PROVIDERS: PCP Internal Medicine; Visit Provider Internal Medicine
DX: Z00.01 Encounter for general adult medical examination with abnormal findings (principal); M85.89 Other specified disorders of bone density and structure, multiple sites; F41.1 Generalized anxiety disorder; J30.89 Other allergic rhinitis; E03.9 Hypothyroidism, unspecified; E78.2 Mixed hyperlipidemia
CPT/HCPCS: 36415; 80061; 82306; 82947; 84443; 84450; 84460

== ENCOUNTER 2023-10-05 08:49 | Outpatient (REF) | payer OTHER, SELFPAY ==
--- NOTE | ~2023-10-05 | MM_ITS ---
EXAMINATION: BONE DENSITOMETRY CLINICAL INDICATION: Other specified disorders of bone density and structure. COMPARISON: Baseline BD dated 01/08/2021. TECHNIQUE: Using a [employer] DXA System (software version: 13.1) manufactured by [employer], dual-energy x-ray absorptiometry was performed of the lumbar spine and left hip. The images are of good technical quality. Summary results are attached. FINDINGS: LEFT FEMUR, NECK: Current: BMD 0.827 g/cm2, Z-score -0.3, T-score -1.5, osteopenia. Baseline: BMD 0.812 g/cm2. LEFT FEMUR, TOTAL: Current: BMD 0.858 g/cm2, Z-score -0.3, T-score -1.2, osteopenia, 4.5% increase from baseline (<5% change is not significant). Baseline: BMD 0.821 g/cm2. AP SPINE L1-L4: Current: BMD 0.925 g/cm2, Z-score -1.0, T-score -2.1, osteopenia, 11.6% decrease from baseline (<5% change is not significant). Baseline: BMD 1.046 g/cm2. IDENTIFIED RISK FACTORS: Menopause. HISTORY OF FRACTURE: None listed. MEDICATIONS: Calcium supplements or multivitamin, vitamin D, ERT/SERMS.. MM/XR DEXA axial skeleton IMPRESSION: 1. DIAGNOSIS: Osteopenia based on the lowest T-score value of -2.1 in the lumbar spine applying World Health Organization criteria. 2. 10-YEAR FRACTURE RISK PREDICTION, FRAX: Not performed in this patient on estrogen or bone building treatments. 3. Treatment Recommendations: NOF guidelines recommend consideration for treatment in postmenopausal women and men age 50 and older presenting with the following: -A hip or vertebral (clinical or morphometric) fracture. -T-score less than or equal to -2.5 at the femoral neck or spine after appropriate evaluation to exclude secondary causes. -Low bone mass at the hip or spine and a 10-year fracture probability by FRAX of greater than or equal to 3% for hip fracture or greater than or equal to 20% for major osteoporotic fracture based on the [place] adapted WHO algorithm. 4. Other Recommendations: All treatment decisions require clinical judgment and consideration of individual patient factors, including patient preferences, comorbidities, previous drug use, risk factors not captured in the FRAX model (e.g. frailty, falls, vitamin D deficiency, increased bone turnover, interval significant decline in bone density) and possible under or overestimation of fracture risk by FRAX. Additional medical evaluation for secondary cause of low bone mineral density may be appropriate. FUTURE SCAN RECOMMENDATION: People with diagnosed cases of osteoporosis or at high risk for fracture should have regular bone mineral density tests. For patients eligible for Medicare, routine testing is allowed once every 2 years. The testing frequency can be increased to one year for patients who have rapidly progressing disease, those who are receiving or discontinuing medical therapy to restore bone mass, or have additional risk factors.
== END 2023-10-05 08:50 | disposition home or self-care (01) ==
LOC: HO.MAMMO 08:49
PROVIDERS: PCP Internal Medicine; Visit Provider Internal Medicine
DX: Z13.820 Encounter for screening for osteoporosis (principal); Z78.0 Asymptomatic menopausal state; M85.89 Other specified disorders of bone density and structure, multiple sites
CPT/HCPCS: 77080

== ENCOUNTER → 2024-06-05 14:21 | Outpatient (RCR) | payer OTHER, SELFPAY ==
[2020-10-19 09:02] VITALS: BP 167/77; PULSE 85; RESP 14; TEMP 36.8; O2SAT 99; BMI 25.7
[2020-10-19 10:03] LABS: MANUAL DIFF FLAG NO
[2020-10-19 10:15] LABS: Basophils Percent Auto 0.5 % (0-2); Eosinophils Absolute Auto 0.1 X10*3/uL (0.0-0.4); Eosinophils Percent Auto 1.2 % (0-4); Hematocrit 47.2 % (37-47); Hemoglobin 15.2 g/dl (12.0-16.0); Imm Gran Abs Auto 0.02 X10*3/uL (0.00-0.03); Imm Gran Pct Auto 0.3 % (0.0-0.4); Lymphocytes Absolute Auto 1.8 X10*3/uL (1.2-4.9); Lymphocytes Percent Auto 30.6 % (20-40); Mean Corpuscular HGB Conc 32.2 g/dl (31.0-35.0); Mean Corpuscular Hemoglobin 30.3 pg (27.0-33.0); Mean Platelet Volume 9.2 fL (9.4-12.3); Monocytes Absolute Auto 0.5 X10*3/uL (0.1-1.2); Monocytes Percent Auto 7.8 % (2-11); Neutrophils Absolute Auto 3.5 X10*3/uL (2.0-8.3); Neutrophils Percent Auto 59.6 % (45-73); Platelet Count 225 X10*3/uL (160-400); Red Blood Count 5.02 X10*6/uL (4.20-5.50); Red Cell Distribution Width 11.6 % (11.0-16.0); White Blood Count 5.9 X10*3/uL (4.8-10.8)
[2020-10-19 10:40] LABS: Alanine Aminotransferase 41 U/L (0-31); Anion Gap 11 (12-20); Aspartate Amino Transferase 26 U/L (5-31); Blood Urea Nitrogen 11 mg/dL (9-16); Calcium 9.5 mg/dL (8.4-10.2); Carbon Dioxide 30 mmol/L (22-29); Chloride 105 mmol/L (96-108); Cholesterol 217 mg/dL; Creatinine Clr Calc Pharmacy 69.6; Estimated Glomerular Filt Rate > 60; Glucose Random 104 mg/dL (60-115); HDL Cholesterol 56 mg/dL; LDL Cholesterol Calculated 130 mg/dl; Potassium 4.2 mmol/l (3.3-5.1); Sodium 142 mmol/L (135-145); Triglycerides 159 mg/dL
[2020-10-19 10:43] LABS: Alanine Aminotransferase 42 U/L (0-31); Albumin Level 4.6 g/dL (3.5-5.0); Alkaline Phosphatase 103 U/L (39-117); Anion Gap 11 (12-20); Aspartate Amino Transferase 26 U/L (5-31); Blood Urea Nitrogen 11 mg/dL (9-16); Calcium 9.6 mg/dL (8.4-10.2); Carbon Dioxide 30 mmol/L (22-29); Chloride 105 mmol/L (96-108); Creatinine Clr Calc Pharmacy 69.6; Estimated Glomerular Filt Rate > 60; Glucose Random 105 mg/dL (60-115); Lactate Dehydrogenase 155 U/L (122-220); Potassium 4.1 mmol/l (3.3-5.1); Sodium 142 mmol/L (135-145); Total Protein 7.4 g/dL (6.5-8.0)
[2020-10-19 11:02] LABS: Free T4 (Free Thyroxine) 1.22 ng/dL (0.71-1.85)
--- NOTE | 2020-10-19 11:44 | PM.HEMONCCN ---
Subjective - Subjective Chief complaint: Left breast cancer Consult date: 10/19/20 Requesting Physician: Dr. Alba Primary Care Provider: Matilde Cerrato MD Medical Summary: Diagnosis: Left breast invasive lobular carcinoma October 2020 Underwent diagnostic bilateral mammography when she presented with a small lump beneath left areola. Imaging revealed: Within the inferior aspect of the left breast at approximately 6:00 position 3 cm from nipple there is a large region of architectural distortion measuring approximately 3 cm in diameter which appears to contain some calcifications. Targeted left breast ultrasound was then performed. Corresponding to the retroareolar palpable region is a 7 x 6 mm simple appearing cyst. In the 6:00 position approximately 3 cm from the nipple there is an irregular marginated hypoechoic lesion with distal sound shadowing measuring approximately 1.8 x 1.1 x 1.7 cm in size. Ultrasound-guided core biopsy done on 09/29/2020 demonstrated a grade 2 infiltrating lobular carcinoma, estrogen and progesterone receptor positive and HER2 Katey negative for over expression (0+). She had a breast MRI done on 10/12/2019. This revealed that the primary lesion measured at least 3.2(AP) x 2.5 (CC) x 2.1 (transverse) cm. Multiple satellite lesions were noted within 1 cm of the main enhancing mass and an additional area of enhancement measuring 0.8 cm was noted at 12:00 o'clock 2 cm from the nipple which may also represent a satellite lesion. Additionally, in the right breast, there are 2 areas of concerning enhancement, 1 at 04:00 o'clock, 3.9 cm from the nipple,measuring 0.8 cm, and 1 at 03:00 o'clock 2.8 cm from the nipple measuring 0.5 cm. MRI directed biopsy of the lesion at 12:00 o'clock in the left breast and the lesions at 3 and 04:00 o'clock in the right breast was recommended. HPI - Consult Narrative Reason for consult: Left breast carcinoma Narrative: Joy Salomon is a 55 year old female who is referred for evaluation of left breast invasive lobular carcinoma. She presented with a swelling in her left breast near the areola and a feeling of fullness in the left lower breast. Imaging revealed a mass in the lower part of her left breast and a cyst in the region of palpable abnormality. Biopsy of the left breast mass at 06:00 o'clock position revealed invasive lobular carcinoma. Bilateral breast MRI unfortunately revealed several small satellite lesions around the left breast lesion at 06:00 o'clock position and another lesion measuring 0.8 cm which was closer to the 12 o'clock position. They were to suspicious lesions in the right breast as well. She is now being scheduled for biopsy of 1 lesion in the left breast and possibly 2 lesions in the right breast by MR guidance. She is rather upset with this turn of events since she is unable to undergo upfront lumpectomy, she does not want to undergo mastectomy. Her maternal aunt was treated for breast cancer. There is no other cancers such as ovarian, pancreatic or prostate cancer in her family. Review of Systems - Constitutional Reports no additional constitutional complaints, Denies chills, Denies fatigue, Denies fever(s) - Cardiovascular Denies chest pain - Respiratory Denies cough, Denies dyspnea - Gastrointestinal Denies abdominal pain, Denies bloating Oncology Screenings - ECOG Performance Status ECOG Performance Status: 0 [facility] Medical History: Medical History (Last Updated 09/29/20 @ 17:57 by Jaylyn Alba MD) Asthma Breast mass, left Hypercholesterolemia Hypothyroidism Family History: Family History (Last Updated 10/19/20 @ 09:12 by Natasha Domínguez) Maternal Grandmother History of lung cancer History of liver cancer Maternal Aunt History of breast cancer History of liver cancer History of thyroid cancer Paternal Uncle History of bone cancer Family/Other Leukemia Maternal Grandfather Heart attack Mother Heart attack COPD (chronic obstructive pulmonary disease) Diverticulitis History of creation of ostomy Paternal Aunt Heart attack Father COPD (chronic obstructive pulmonary disease) Sister History of lung cancer Asthma Surgical History: Surgical History (Last Updated 10/19/20 @ 09:07 by Natasha Domínguez) Hx of tonsillectomy Status post correction of deviated nasal septum Smoking status: Never smoker Home Medications and Allergies Home Medications Medication Instructions Recorded Confirmed Type levothyroxine 75 mcg capsule 75 mcg PO DAILY 09/29/20 10/19/20 History montelukast 10 mg tablet 10 mg PO DAILY 09/29/20 10/19/20 History rosuvastatin 5 mg tablet 5 mg PO DAILY 09/29/20 10/19/20 History Allergies Allergy/AdvReac Type Severity Reaction Status Date / Time No Known Allergies Allergy Unverified 06/25/20 14:46 [No Known Allergies*] dexamethasone AdvReac Unknown Verified 12/02/19 00:00 Cats, Dogs Allergy Unknown Uncoded 12/02/19 00:00 mold Allergy Unknown Uncoded 01/09/20 00:00 Physical Exam Vital signs: Vital Signs Temp 98.2 F 10/19/20 09:02 Pulse 85 10/19/20 09:02 Resp 14 10/19/20 09:02 BP 167/77 H 10/19/20 09:02 Pulse Ox 99 10/19/20 09:02 Intake & Output 10/18/20 10/19/20 10/19/20 18:59 06:59 18:59 Other: Weight 63.8 kg Weight 63.8 kg - Constitutional Present: mild distress Comments: Tearful and upset about her diagnosis. - Routine HEENT Exam Head: Present: normal inspection Eye: Present: EOMI - Routine Neck Exam Present: supple. Absent: JVD - Routine Chest/Breast/Axilla Exam Breast: Present: mass, swelling Axillae: Absent: lymphadenopathy Comments: Left breast appeared slightly smaller than right. Inferior aspect of left breast he is a palpable fullness extending 3-4 cm. No skin involvement. No warmth or tenderness. No axillary adenopathy. Hem/Onc Consult Result - Labs CBC & Chem 7: 10/19/20 09:58 10/19/20 09:58 Labs: Short CBC 10/19/20 Range/Units 09:58 WBC 5.9 (4.8-10.8) X10*3/uL Hgb 15.2 (12.0-16.0) g/dl Hct 47.2 H (37-47) % Plt Count 225 (160-400) X10*3/uL BMP 10/19/20 10/19/20 09:58 09:58 Sodium 142 142 Potassium 4.1 4.2 Chloride 105 105 Carbon Dioxide 30 H 30 H BUN 11 11 Creatinine 0.81 0.81 Calcium 9.6 9.5 Liver Function 10/19/20 10/19/20 Range/Units 09:58 09:58 Total Bilirubin 1.0 (0.0-1.0) mg/dL AST 26 26 (5-31) U/L ALT 42 H 41 H (0-31) U/L Alkaline Phosphatase 103 (39-117) U/L Albumin 4.6 (3.5-5.0) g/dL Assessment and Plan (1) Cancer of left breast Status: Acute 1. This is 55-year-old premenopausal woman presenting with left breast invasive lobular carcinoma, clinical stage T2 N0, ER/TX positive HER2/katey negative. Bilateral breast MRI has revealed additional lesions in the left breast and right breast, she is scheduled for MR guided biopsy of these lesions as described above. Only other person with breast cancer is her maternal aunt who had breast cancer above the age of 50. She therefore does not qualify for genetic testing for inherited breast/ovarian cancer syndrome. Today we discussed new adjuvant chemotherapy which could yield better results for breast conservative treatment. However, if the 2nd lesion in the left breast is also malignant, she may not be eligible for lumpectomy even after neoadjuvant chemotherapy. I also touched upon chemotherapy regimen involving anthracycline and non anthracycline regimen such as Taxotere/Cytoxan. She met with our marriage and family social worker and was counseled about her concerns and fears about her diagnosis. If necessary, she will be referred for further counseling with psychologist for distress management related to diagnosis. Thank you very much for this referral. Follow-up next week, biopsy scheduled for this week.
--- NOTE | 2020-10-19 15:57 | MHC.HEMONCSW ---
PATIENT IS A 55 YEAR OLD , FEMALE WHO IS INDEPENDENT AND ABLE TO MAKE HER NEEDS KNOWN. DIAGNOSIS IS BREAST CANCER. FEELS SAD, OVERWHELMED THAT POSSIBLY CANCER IS IN BOTH BREASTS SHE HOPED FOR A LUMPECTOMY. ALLOWED PATIENT TO VENT HER WORRIES AND CONCERNS ABOUT HER HEALTH AND BODY IMAGE. SHE IS SINGLE, REPORTS HAVING A GOOD SUPPORT SYSTEM. ESTRANGED FROM EX /FATHER OF HER CHILDREN....DESCRIBES HIM NEVER HAVING BEEN SUPPORTIVE OF HER. MEDICAL WORK UP AND FURTHER BIOPSIES IN PROCESS. EDUCATION AND SUPPORT PROVIDED. REPORTS LENGTHY H/O DEPRESSION, DENIES SELF HARM AND HARM TO OTHERS, OTHERWISE DEFERS QUESTION TO ANOTHER TIME. DECLINES REFERRAL FOR COUNSELING. SHE IS AWARE OF MY AVAILABILITY.
[2020-10-21 13:02] LABS: CA 27.29 11 U/mL (<38)
[2020-10-28 15:57] VITALS: BP 127/65; PULSE 73; TEMP 37.2; O2SAT 97; BMI 25.8
--- NOTE | 2020-10-28 16:21 | P.PNHO_ITS ---
Medical Summary - Medical Summary Date of Service: 11/02/20 Chief complaint: Follow-up Medical Summary: Diagnosis: Left breast invasive lobular carcinoma October 2020 Underwent diagnostic bilateral mammography when she presented with a small lump beneath left areola. Imaging revealed: Within the inferior aspect of the left breast at approximately 6:00 position 3 cm from nipple there is a large region of architectural distortion measuring approximately 3 cm in diameter which appears to contain some calcifications. Targeted left breast ultrasound was then performed. Corresponding to the retroareolar palpable region is a 7 x 6 mm simple appearing cyst. In the 6:00 position approximately 3 cm from the nipple there is an irregular marginated hypoechoic lesion with distal sound shadowing measuring approximately 1.8 x 1.1 x 1.7 cm in size. Ultrasound-guided core biopsy done on 09/29/2020 demonstrated a grade 2 infiltrating lobular carcinoma, estrogen and progesterone receptor positive and HER2 Katey negative for over expression (0+). She had a breast MRI done on 10/12/2019. This revealed that the primary lesion measured at least 3.2(AP) x 2.5 (CC) x 2.1 (transverse) cm. Multiple satellite lesions were noted within 1 cm of the main enhancing mass and an additional area of enhancement measuring 0.8 cm was noted at 12:00 o'clock 2 cm from the nipple which may also represent a satellite lesion. Additionally, in the right breast, there are 2 areas of concerning enhancement, 1 at 04:00 o'clock, 3.9 cm from the nipple,measuring 0.8 cm, and 1 at 03:00 o'clock 2.8 cm from the nipple measuring 0.5 cm. MRI directed biopsy of the lesion at 12:00 o'clock in the left breast and the lesions at 3 and 04:00 o'clock in the right breast was recommended. Interval History Interval history: Patient is here in follow-up. She is doing well, she has undergone bilateral MR guided breast biopsies, she has been told of the results which fortunately were negative for cancer. She is awaiting consultation at [facility], she has decided to undergo surgery and further treatment there. Review of Systems - Constitutional Reports no additional constitutional complaints PMFSH Medical History: Medical History (Last Updated 10/26/20 @ 10:01 by Matilde Cerrato MD) Acquired hypothyroidism Asthma Breast mass, left Environmental and seasonal allergies Lobular carcinoma of breast, stage 2, estrogen receptor positive Mixed dyslipidemia Family History: Family History (Last Reviewed 10/27/20 @ 16:13 by CHITRA Joseph) Maternal Grandmother History of lung cancer History of liver cancer Maternal Aunt History of breast cancer History of liver cancer History of thyroid cancer Paternal Uncle History of bone cancer Family/Other Leukemia Maternal Grandfather Heart attack Mother Heart attack COPD (chronic obstructive pulmonary disease) Diverticulitis History of creation of ostomy HTN (hypertension) Paternal Aunt Heart attack Father COPD (chronic obstructive pulmonary disease) Depression Alcoholism Sister History of lung cancer Asthma Brother Skin cancer Daughter No problems noted. Daughter No problems noted. Surgical History: Surgical History (Last Reviewed 10/27/20 @ 16:13 by CHITRA Joseph) History of breast biopsy Hx of LASIK Hx of tonsillectomy Status post correction of deviated nasal septum Smoking status: Never smoker Oncology Screenings - ECOG Performance Status ECOG Performance Status: 1 Home Medications and Allergies Home Medications Medication Instructions Recorded Confirmed Type levothyroxine 75 mcg capsule 75 mcg PO DAILY 09/29/20 10/26/20 History montelukast 10 mg tablet 10 mg PO DAILY 09/29/20 10/26/20 History rosuvastatin 5 mg tablet 5 mg PO DAILY 09/29/20 10/26/20 History loratadine [Claritin] 10 mg PO DAILY 10/28/20 10/28/20 History xwrkikqkniev-oawo-tlagz acid 1 tab PO DAILY 10/28/20 10/28/20 History [Multi-Day with Iron] Allergies Allergy/AdvReac Type Severity Reaction Status Date / Time dexamethasone AdvReac Unknown unknown Verified 10/27/20 16:12 Cats, Dogs Allergy Unknown unknown Uncoded 10/23/20 14:40 mold Allergy Unknown unknown Uncoded 10/23/20 14:40 Exam Vital signs: Vital Signs Temp 98.9 F 10/28/20 15:57 Pulse 73 10/28/20 15:57 Resp 14 10/19/20 09:02 BP 127/65 10/28/20 15:57 Pulse Ox 97 10/28/20 15:57 Intake & Output 10/27/20 10/28/20 10/28/20 18:59 06:59 18:59 Other: Weight 64 kg Weight 64 kg Body Mass Index 25.8 - Constitutional Present: mild distress - Routine HEENT Exam Head: Present: normal inspection Data - Labs CBC & Chem 7: 10/19/20 09:58 10/19/20 09:58 Labs: 10/19/20 09:58 Alanine Aminotransferase Routine Aspartate Amino Transferase Routine Basic Metabolic Panel Routine CA 27.29 Routine Complete Blood Count Auto Diff Routine Comprehensive Met. Panel Routine Free T4 (Free Thyroxine) Routine LDH [Lactate Dehydrogenase] Routine Lipid Panel Routine Laboratory Last Values WBC 5.9 X10*3/uL (4.8-10.8) 10/19/20 09:58 RBC 5.02 X10*6/uL (4.20-5.50) 10/19/20 09:58 Hgb 15.2 g/dl (12.0-16.0) 10/19/20 09:58 Hct 47.2 % (37-47) H 10/19/20 09:58 MCV 94.0 fL (80-98) 10/19/20 09:58 MCH 30.3 pg (27.0-33.0) 10/19/20 09:58 MCHC 32.2 g/dl (31.0-35.0) 10/19/20 09:58 RDW 11.6 % (11.0-16.0) 10/19/20 09:58 Plt Count 225 X10*3/uL (160-400) 10/19/20 09:58 MPV 9.2 fL (9.4-12.3) L 10/19/20 09:58 Immature Gran % (Auto) 0.3 % (0.0-0.4) 10/19/20 09:58 Neut % (Auto) 59.6 % (45-73) 10/19/20 09:58 Lymph % (Auto) 30.6 % (20-40) 10/19/20 09:58 [place] % (Auto) 7.8 % (2-11) 10/19/20 09:58 Eos % (Auto) 1.2 % (0-4) 10/19/20 09:58 Baso % (Auto) 0.5 % (0-2) 10/19/20 09:58 Lymph # (Auto) 1.8 X10*3/uL (1.2-4.9) 10/19/20 09:58 [place] # (Auto) 0.5 X10*3/uL (0.1-1.2) 10/19/20 09:58 Eos # (Auto) 0.1 X10*3/uL (0.0-0.4) 10/19/20 09:58 Baso # (Auto) 0.0 X10*3/uL (0.0-0.2) 10/19/20 09:58 Abs Immat Gran (auto) 0.02 X10*3/uL (0.00-0.03) 10/19/20 09:58 Absolute Neuts (auto) 3.5 X10*3/uL (2.0-8.3) 10/19/20 09:58 Absolute Nucleated RBC 0.000 X10*3/uL (0.0-0.012) 10/19/20 09:58 Nucleated RBC % (auto) 0.0 /100WBC (0.0-0.2) 10/19/20 09:58 Sodium 142 mmol/L (135-145) 10/19/20 09:58 Sodium 142 mmol/L (135-145) 10/19/20 09:58 Potassium 4.1 mmol/l (3.3-5.1) 10/19/20 09:58 Potassium 4.2 mmol/l (3.3-5.1) 10/19/20 09:58 Chloride 105 mmol/L (96-108) 10/19/20 09:58 Chloride 105 mmol/L (96-108) 10/19/20 09:58 Carbon Dioxide 30 mmol/L (22-29) H 10/19/20 09:58 Carbon Dioxide 30 mmol/L (22-29) H 10/19/20 09:58 Anion Gap 11 (12-20) L 10/19/20 09:58 Anion Gap 11 (12-20) L 10/19/20 09:58 BUN 11 mg/dL (9-16) 10/19/20 09:58 BUN 11 mg/dL (9-16) 10/19/20 09:58 Creatinine 0.81 mg/dL (0.5-1.4) 10/19/20 09:58 Creatinine 0.81 mg/dL (0.5-1.4) 10/19/20 09:58 Estim Creat Clear Calc 69.6 10/19/20 09:58 Estim Creat Clear Calc 69.6 10/19/20 09:58 Estimated GFR > 60 10/19/20 09:58 Estimated GFR > 60 10/19/20 09:58 Random Glucose 104 mg/dL (60-115) 10/19/20 09:58 Random Glucose 105 mg/dL (60-115) 10/19/20 09:58 Calcium 9.5 mg/dL (8.4-10.2) 10/19/20 09:58 Calcium 9.6 mg/dL (8.4-10.2) 10/19/20 09:58 Total Bilirubin 1.0 mg/dL (0.0-1.0) 10/19/20 09:58 AST 26 U/L (5-31) 10/19/20 09:58 AST 26 U/L (5-31) 10/19/20 09:58 ALT 41 U/L (0-31) H 10/19/20 09:58 ALT 42 U/L (0-31) H 10/19/20 09:58 Alkaline Phosphatase 103 U/L (39-117) 10/19/20 09:58 Lactate Dehydrogenase 155 U/L (122-220) 10/19/20 09:58 Total Protein 7.4 g/dL (6.5-8.0) 10/19/20 09:58 Albumin 4.6 g/dL (3.5-5.0) 10/19/20 09:58 Triglycerides 159 mg/dL 10/19/20 09:58 Cholesterol 217 mg/dL 10/19/20 09:58 LDL Cholesterol, Calc 130 mg/dl 10/19/20 09:58 HDL Cholesterol 56 mg/dL 10/19/20 09:58 CA 27-29 11 U/mL (<38) 10/19/20 09:58 Free T4 1.22 ng/dL (0.71-1.85) 10/19/20 09:58 Progress Note: A/P (1) Cancer of left breast Status: Acute Assessment and plan: 1. This is 55-year-old premenopausal woman presenting with left breast invasive lobular carcinoma, clinical stage T2 N0, ER/SC positive HER2/katey negative. Bilateral breast MRI has revealed additional lesions in the left breast and right breast. Biopsies were done on 10/22/2020. The area of enhancement at 04:00 o'clock in the right breast was not present on the biopsy MRI. The areas of enhancement at 03:00 o'clock in the right breast and 12:00 o'clock in the left breast were biopsied and both were benign with similar pathologic results: A. Breast, left, excision: Benign breast tissue with apocrine metaplasia, fibrocystic changes and focal adenosis; no atypia or malignancy identified. B. Breast, right, excision: Benign breast tissue with apocrine metaplasia and fibrocystic changes; no atypia or malignancy identified. Her blood work which was done on her last visit was normal including tumor marker CA 27-29. She is interested in upfront surgery and would like to defer neoadjuvant treatment/chemotherapy. She has a consultation at [facility] next week. She will call back if she has any other concerns or would like to pursue adjuva nt treatment here. - Time Spent With Patient Total time spent is greater than 50% in coordination of care (as documented) at patient's floor/unit and/or counseling patient: 15 - 24 minutes
--- NOTE | 2020-10-28 16:29 | MHC.HEMONC ---
Pt will call after f/u at [facility] for any necessary appointments here.
== END | disposition home or self-care (01) ==
LOC: HO.ONC 10-19 08:51
PROVIDERS: PCP Internal Medicine; Referring Provider Surgery; Visit Provider Internal Medicine
DX: C50.912 Malignant neoplasm of unspecified site of left female breast (principal); Z17.0 Estrogen receptor positive status [ER+]
CPT/HCPCS: 36415; 80048; 80053; 80061; 83615; 84439; 84450; 84460; 85025; 86300; 99205; 99213

== ENCOUNTER 2024-08-29 08:52 | Outpatient (AMB) | payer OTHER, SELFPAY ==
--- NOTE | 2024-08-29 09:05 | A.OFFPC_ITS ---
Vital Signs 08/29/24 09:06 Height 5 ft 2 in Weight 141 lb 4 oz BMI 25.8 BP 120/70 Blood Pressure Location Rt brachial Position Sitting Pulse 68 Pulse Source Pulse Oximeter Pulse Oximetry (%) 98 Oxygen Delivery Method Room Air Intake Visit Reasons: Annual PE Intake Note: Pt is here today for her PE: last papsmear 07/06/21, colonoscopy 12/20/18, bone density scan 10/05/23 Allergies dexamethasone Adverse Reaction (Unknown, Verified 08/29/24 09:20) unknown Cats, Dogs Allergy (Unknown, Uncoded 08/29/24 09:20) unknown mold Allergy (Unknown, Uncoded 08/29/24 09:20) unknown Medication List - Last Reconciled 08/29/24 by Matilde Cerrato MD calcium carbonate (Calcium 600) 600 mg PO DAILY letrozole 2.5 mg PO DAILY levothyroxine 75 mcg PO QAM loratadine (Claritin) 10 mg PO DAILY mometasone 0.1% 1 appl topical DAILY 10 days montelukast (Singulair) 10 mg PO DAILY xhqsoyjtlgwg-ktbn-gxxlt acid 18-400 mg-mcg (Multi-Day with Iron) 1 tab PO DAILY omega-3 fatty acids (Fish Oil Concentrate) 1,000 mg PO DAILY rosuvastatin 5 mg PO DAILY sertraline 75 mg (1.5 x 50 mg) PO DAILY 90 days Tobacco use date assessed: 08/29/24 Dental Screening Dental Screen Date: 08/29/24 Did you have a dental visit in the last 12 months?: Yes Did you have a dental problem in the last 6 months where you did not have access to dental care?: No Was dental information given to patient?: Patient has dentist HPI Annual PE HPI Details The patient is a 58-year-old female presenting for a routine physical examination. The patient has a significant medical history of osteopenia, first diagnosed after a bone density scan in September. The scan showed an 11.6% decrease in bone density in the lumbar spine, categorized as osteopenia, with minor improvements noted in the left thigh. The patient also has a history of breast cancer diagnosed in September 2020, treated with mastectomy in 2020. She underwent annual MRIs and biopsies at [facility] due to a previous discrepancy in imaging interpretations between facilities. Her cancer was noted as ER/SC positive, HER2 negative, and she continues on letrozole Additionally, she has hyperlipidemia, treated with rosuvastatin and fish oil, and hypothyroidism managed with levothyroxine. Recent lab tests showed a rise in triglycerides and prediabetic glucose levels. She reports anxiety managed with sertraline,Preventative care includes colonoscopy last performed in 2019 with a 10-year recall. [facility] Medical History (Updated 08/29/24 @ 09:39 by Matilde Cerrato MD) Impaired fasting glucose History of left breast cancer Annual visit for general adult medical examination with abnormal findings Osteopenia of multiple sites Generalized anxiety disorder Lobular carcinoma of breast, stage 2, estrogen receptor positive Environmental and seasonal allergies Acquired hypothyroidism Mixed dyslipidemia Asthma Surgical History Hx of left mastectomy History of breast biopsy Hx of LASIK Hx of tonsillectomy Status post correction of deviated nasal septum Family History Maternal Grandmother History of lung cancer History of liver cancer Maternal Aunt History of breast cancer History of liver cancer History of thyroid cancer Paternal Uncle History of bone cancer Family/Other Leukemia Maternal Grandfather Heart attack Mother Heart attack COPD (chronic obstructive pulmonary disease) Diverticulitis History of creation of ostomy HTN (hypertension) Paternal Aunt Heart attack Father COPD (chronic obstructive pulmonary disease) Depression Alcoholism Substance use disorder Mental health disorder Sister History of lung cancer Asthma Substance use disorder Mental health disorder Brother Skin cancer Daughter No problems noted. Daughter No problems noted. Paternal Grandfather Substance use disorder Social History Household Members: Children Household Members Other:: 3 Housing: House Are you a primary care transitions nurse to a significant other at home: No Alcohol intake: current Alcohol intake frequency: holidays/special occasions only Alcohol type: wine Patient Tobacco Use Status: Never used Tobacco e-Cigarette/Vaping Use: Never Used Second Hand Smoke Exposure: No service: No Current occupational status: employed Cognitive needs: No Hearing needs: No Vision needs: No Female Reproductive History Menstrual Age of Menarche: 14 Questionnaire PHQ-9 Over the last 2 weeks, how often have you been bothered by any of the following problems? 1. Little interest or pleasure in doing things: not at all 2. Feeling down, depressed, or hopeless: not at all 3. Trouble falling or staying asleep, or sleeping too much: several days 4. Feeling tired or having little energy: not at all 5. Poor appetite or overeating: not at all 6. Feeling bad about yourself - or that you are a failure or have let yourself or your family down: not at all 7. Trouble concentrating on things, such as reading the newspaper or watching television: not at all 8. Moving or speaking so slowly that other people could have noticed. Or the opposite - being so fidgety or restless that you have been moving around a lot more than usual: not at all 9. Thoughts that you would be better off or of hurting yourself in some way: not at all Total score: 1 Depression Screening Interpretation: Negative Depression Screening Done: Yes Source: Developed by Drs. Davide Mcqueen, Charline Chicas, Carlos Eduardo Umanzor and colleagues, with an educational juana from [employer] Thrive Questionnaire Date Thrive assessed: 08/29/24 I am a: Patient What is your living situation today?: I have a steady place to live Within the past 12 months, did the food you bought not last and you didn't have the money to get more?: Never true Within the past 12 months, did you worry whether your food would run out before you got money to buy more?: Never true Do you have trouble paying for medicines?: No Do you have trouble getting transportation to medical appointments?: No Do you have trouble paying your heating and electricity bill?: No Do you have trouble taking care of your child, family member or friend?: No Do you have trouble with day-to-day activities such as bathing, preparing meals, shopping, managing finances, etc.?: No Are you currently unemployed and looking for a job?: No Are you interested in more education?: No Please select the resources that you would like help with: None Currently or been in a relationship where the following occur: No concerns reported THRIVE Score: 0 AUDIT C Alcohol Use Questionnaire (AUDIT-C) 1. How often do you have a drink containing alcohol?: 2-4 times a month 2. How many drinks containing alcohol do you have on a typical day when you are drinking?: 1 or 2 3. How often do you have six or more drinks on one occasion?: Never Total Score: 2 MANUELITO-7 AMB Questionnaire MANUELITO-7 Date MANUELITO - 7 assessed: 08/29/24 Feeling nervous, anxious, or on edge: 1 = Several days Not being able to stop or control worryin = Several days Worrying too much about different things: 1 = Several days Trouble relaxin = Several days Being so restless that it is hard to sit still: 0 = Not at all Becoming easily annoyed or irritable: 1 = Several days Feeling afraid as if something awful might happen: 0 = Not at all Total MANUELITO-7 score (0-4 normal; 5-9 mild; 10-14 moderate; 15-21 severe): 5 Source: Developed by Drs. Davide Mcqueen, Charline Chicas, Carlos Eduardo Umanzor and colleagues, with an educational juana from [employer] MANUELITO-7 Assessment Billing MANUELITO-7 Assessment Tool: MANUELITO-7 Assessment 63880 Review of Systems Const Denies body aches, Denies fever(s), Denies headache(s) and Denies weakness Eyes Details: [facility] Reports change in vision (With reading) ENT Denies dizziness, Denies headache(s), Denies nasal discharge and Denies sore throat Card Denies chest pain, Denies lightheadedness and Denies dyspnea Resp Denies chest congestion, Denies cough and Denies dyspnea GI Denies abdominal pain, Denies change in bowel habits and Denies heartburn Reports no additional complaints Musc Reports stiffness Skin/Breast Denies lesions and Denies rash Neuro Denies dizziness, Denies headache(s) and Denies weakness Psych Reports no additional complaints Endo Reports no additional complaints Paras/Lymph Reports no additional complaints Aller/Immun Reports no additional complaints Physical exam (Primary Care) Vital Signs: Last Vital Signs Pulse 68 08/29/24 09:06 BP 120/70 08/29/24 09:06 Pulse Ox 98 08/29/24 09:06 Oxygen Delivery Method Room Air 08/29/24 09:06 BMI result Body Mass Index 25.8 Tobacco/Smoking Status: Tobacco use Status Tobacco use date assessed 08/29/24 08/29/24 09:08 Patient Tobacco Use Status Never used Tobacco 08/29/24 09:08 e-Cigarette/Vaping Use Never Used 08/29/24 09:08 PHQ-9: PHQ-9 Score PHQ-9: Total score 6 08/30/24 01:36 Depression Screening Interpretation: Negative Thrive Assessment: Date of Thrive Assessment Date Thrive assessed 08/29/24 08/29/24 09:08 Currently or been in a relationship where the following occur: No concerns reported Advance Care Planning discussion: Completed/Scanned Date of discussion: 08/29/24 Who was present: patient Forms completed: Health Care Proxy Time spent: 16-45 minutes Actual minutes spent: 3 Const General: no acute distress Orientation/consciousness: patient oriented x3 Limitations: no limitations HENMT Ears: hearing grossly normal bilaterally, external ears normal, TM's normal bilaterally and EAC's normal General nose exam: Normal external nose present and No nasal discharge present Mouth: Normal oral and palatal mucosa present, oropharynx normal and moist mucous membranes Eyes General: appearance normal, both eyes and all related structures Conjunctivae: conjunctivae normal Pupils: Equal, round and reactive pupils present EOM: EOMs intact bilaterally Neck Neck: Yes full ROM, Yes no lymphadenopathy and Yes supple Chest Other: Breast implant left, no mass palpated on right breast, no abnormal nipple discharge in right noted Chest palpation & inspection: normal inspection of the chest Breast/axilla inspection: normal inspection of the breasts (right, left breast implant) Breast/axilla palpation: normal palpation of the breasts (right, left breast implant present ) and normal palpation of the axillae Resp Effort & Inspection: normal respiratory effort and able to speak in complete sentences Auscultation: clear to auscultation bilaterally Cardio Rate: regular rate Rhythm: regular rhythm Heart sounds: S1 normal heart sound present and S2 normal heart sound present GI Inspection: Yes normal to inspection Palpation (GI): Soft to palpation, Firmness to palpation present (GI), nontender and no masses Auscultation: normal bowel sounds General: Yes no CVA tenderness Back/Spine/Pelvis Back: no CVA tenderness Skin General skin exam: no rashes or lesions noted Neuro General: patient oriented x3, gait normal, tone normal, moves all extremities, Normal light touch and pain sensation and no focal motor deficits Cranial nerves: Yes Equal, round and reactive pupils present Cognition (Neuro): normal cognition Gait exam (Neuro): Normal gait present Motor exam (neuro): 5/5 motor strength present throughout Extrem Other: No gross bone deformity no joint swelling noted, full range of motion in all joints Psych Appearance: grossly normal Mental Status: mental status grossly normal Speech and movement: Normal speech and movement present Affect: normal affect Attitude: cooperative Thought process: Normal thought process present Office Procedures Flu Questionnaire Does the patient have a severe egg allergy?: No Does the patient have severe life threatening allergies?: No Does the patient have a fever or illness today?: No Has the patient ever had Guillain-[place] Syndrome?: No Has the patient ever had any past reaction to a flu shot?: No Immunizations Fluarix Triv [id number] (PF) 45 mcg (15 mcg x 3)/0.5 mL IM syringe Performing Provider: Matilde Cerrato MD [place] [facility] Administered by: Aylin Alvarez CMA on 08/29/24 09:59 Dose Route Admin Location Dispensed Lot Number Expiration Date [facility] Rig Site Engineer 0.5 mL IM Right Deltoid 0.5 mL [id number] 04/07/25 [id number] oneforty VIS Given Date VIS Provided VIS Publication Date 08/29/24 Single Vaccine 21 Eligibility Eligibility Date Funding Source Not [facility] Eligible 08/29/24 Private Coding Level of Care Code Est Pt Prev Care 40-64y(57378) Diagnoses Annual visit for general adult medical examination with abnormal findings Z00. Mixed dyslipidemia E78.2 Acquired hypothyroidism E03.9 Generalized anxiety disorder F41.1 Osteopenia of multiple sites M85.89 History of left breast cancer Z85.3 Increased frequency of urination R35.0 Advanced directives, counseling/discussion Z71.89 Additional Codes Vital Signs *Quality* - Advance Care Planning discussion: Completed/Scanned ([id number]) Vital Signs *Quality* - Time spent: 16-45 minutes ([id number]) MANUELITO-7 Assessment Billing - MANUELITO-7 Assessment Tool: MANUELITO-7 Assessment 91782 ([id number]) Assessment & Plan Assessment & Plan (1) Annual visit for general adult medical examination with abnormal findings: Code(s): Z00.01 - Encounter for general adult medical examination with abnormal findings Category: Medical (2) Mixed dyslipidemia: Code(s): E78.2 - Mixed hyperlipidemia Category: Medical (3) Acquired hypothyroidism: Code(s): E03.9 - Hypothyroidism, unspecified Category: Medical (4) Generalized anxiety disorder: Code(s): F41.1 - Generalized anxiety disorder Category: Medical (5) Osteopenia of multiple sites: Code(s): M85.89 - Other specified disorders of bone density and structure, multiple sites Category: Medical (6) History of left breast cancer: Code(s): Z85.3 - Personal history of malignant neoplasm of breast Category: Medical (7) Increased frequency of urination: Code(s): R35.0 - Frequency of micturition (8) Advanced directives, counseling/discussion: Code(s): Z71.89 - Other specified counseling Plan: Initiated the conversation about Advanced Directives. Advanced Directives help patients prepare for current and future decisions about their medical treatment and place of care. Discussed with patient that it is a process where a patients current condition and prognosis are reviewed, their wishes for information regarding their illness are elicited, and likely medical dilemmas are presented and options discussed. Health care proxy form done today. The form can be amended as needed, reviewed yearly and make changes as needed Plan - Osteopenia: Advise continuation of weight-bearing exercises such as walking with weights and consider joining a water aerobics class. This aims to prevent further bone density loss. - Breast Cancer History: Continue current regimen of letrozole; monitor for side effects. Reassess in regular oncologic follow-ups. - Hypertension and Hyperlipidemia: Continue current medications; repeat lipid profile due to raised triglycerides. - Urinary Urgency: Conduct urinalysis to check for infection. Evaluate lifestyle factors; suggest bladder training methods. - Anxiety: Continue sertraline; assess mental health support as needed. I discussed with the patient her ongoing health management, highlighting the importance of regular exercise and medical follow-ups. We emphasized the continuation of letrozole for her breast cancer prophylaxis and addressed medication side effects. Regarding osteopenia, I encouraged engagement in weight-bearing activities and proposed aquatic exercises for joint health. I acknowledged recent lab findings, emphasizing monitoring of her triglycerides and glucose levels. We reviewed the significance of urinary symptoms and planned a urinalysis to rule out an infection. The patient understands the need for regular screenings and is compliant with her medication regimen. We established a follow-up in six months for lipid profile reassessment and supported her with a flu shot, reiterating the need to discuss shingles vaccination in an upcoming visit. Patient was informed and verbally consented to the use of an ambient scribe for clinic note documentation during this visit. Orders: Orders Basic Metabolic Panel Fasting 08/29/24 E03.9 - Hypothyroidism, unspecified, E78.2 - Mixed hyperlipidemia, F41.1 - Generalized anxiety disorder, M85.89 - Other specified disorders of bone density and structure, multiple sites, R73.01 - Impaired fasting glucose, Z00.01 - Encounter for general adult medical examination with abnormal findings, Z85.3 - Personal history of malignant luis plasm of breast Hemoglobin A1c 08/29/24 E03.9 - Hypothyroidism, unspecified, E78.2 - Mixed hyperlipidemia, F41.1 - Generalized anxiety disorder, M85.89 - Other specified disorders of bone density and structure, multiple sites, R73.01 - Impaired fasting glucose, Z00.01 - Encounter for general adult medical examination with abnormal findings, Z85.3 - Personal history of malignant neoplasm of breast Lipid Panel 08/29/24 E03.9 - Hypothyroidism, unspecified, E78.2 - Mixed hyperlipidemia, F41.1 - Generalized anxiety disorder, M85.89 - Other specified disorders of bone density and structure, multiple sites, R73.01 - Impaired fasting glucose, Z00.01 - Encounter for general adult medical examination with abnormal findings, Z85.3 - Personal history of malignant neoplasm of breast Vitamin D 25-OH Total 08/29/24 E03.9 - Hypothyroidism, unspecified, E78.2 - Mixed hyperlipidemia, F41.1 - Generalized anxiety disorder, M85.89 - Other specified disorders of bone density and structure, multiple sites, R73.01 - Impaired fasting glucose, Z00.01 - Encounter for general adult medical examination with abnormal findings, Z85.3 - Personal history of malignant neoplasm of breast Thyroid Stimulating Hormone 08/29/24 E03.9 - Hypothyroidism, unspecified, E78.2 - Mixed hyperlipidemia, F41.1 - Generalized anxiety disorder, M85.89 - Other specified disorders of bone density and structure, multiple sites, R73.01 - Impaired fasting glucose, Z00.01 - Encounter for general adult medical examination with abnormal findings, Z85.3 - Personal history of malignant neoplasm of breast Free T4 (Free Thyroxine) 08/29/24 E03.9 - Hypothyroidism, unspecified, E78.2 - Mixed hyperlipidemia, F41.1 - Generalized anxiety disorder, M85.89 - Other specified disorders of bone density and structure, multiple sites, R73.01 - Impaired fasting glucose, Z00.01 - Encounter for general adult medical examination with abnormal findings, Z85.3 - Personal history of malignant neoplasm of breast Influenza [id number] Immunization 08/29/24 Z23 - Encounter for immunization Alanine Aminotransferase 08/29/24 E03.9 - Hypothyroidism, unspecified, E78.2 - Mixed hyperlipidemia, F41.1 - Generalized anxiety disorder, M85.89 - Other specified disorders of bone density and structure, multiple sites, R73.01 - Impaired fasting glucose, Z00.01 - Encounter for general adult medical examination with abnormal findings, Z85.3 - Personal history of malignant neoplasm of breast Aspartate Amino Transferase 08/29/24 E03.9 - Hypothyroidism, unspecified, E78.2 - Mixed hyperlipidemia, F41.1 - Generalized anxiety disorder, M85.89 - Other specified disorders of bone density and structure, multiple sites, R73.01 - Impaired fasting glucose, Z00.01 - Encounter for general adult medical examination with abnormal findings, Z85.3 - Personal history of malignant neoplasm of breast UA CC w/rflx Micro + Cult 08/29/24 R35.0 - Frequency of micturition, Z00.01 - Encounter for general adult medical examination with abnormal findings
[2024-08-29 09:06] VITALS: BP 120/70; PULSE 68; O2SAT 98; BMI 25.8
== END 2024-08-29 09:59 | disposition home or self-care (01) ==
PROVIDERS: PCP Internal Medicine; Visit Provider Internal Medicine
DX: Z00.01 Encounter for general adult medical examination with abnormal findings (principal); E78.2 Mixed hyperlipidemia; E03.9 Hypothyroidism, unspecified; F41.1 Generalized anxiety disorder; M85.89 Other specified disorders of bone density and structure, multiple sites; Z85.3 Personal history of malignant neoplasm of breast; R35.0 Frequency of micturition; Z71.89 Other specified counseling; Z00.00 Encounter for general adult medical examination without abnormal findings

== ENCOUNTER → 2024-08-29 08:52 | Outpatient (BNVA) | payer OTHER, SELFPAY | PROVIDERS: PCP Internal Medicine; Visit Provider Internal Medicine | DX: Z00.01 Encounter for general adult medical examination with abnormal findings (principal); E78.2 Mixed hyperlipidemia; E03.9 Hypothyroidism, unspecified; F41.1 Generalized anxiety disorder; M85.89 Other specified disorders of bone density and structure, multiple sites; R35.0 Frequency of micturition; Z85.3 Personal history of malignant neoplasm of breast; Z71.89 Other specified counseling; Z23 Encounter for immunization | CPT/HCPCS: 90471; 90656; 96127 ==

== ENCOUNTER 2024-10-04 09:12 | Outpatient (REF) | payer OTHER, SELFPAY ==
[2024-10-04 10:03] LABS: Appearance Urine Clear; Color Urine Yellow; Glucose Urine UA Negative (Negative); Leukocyte Esterase Urine Negative (Negative); Nitrite Urine Negative (Negative); PH 6.5 (5.0-9.0); Urine Blood Negative (Negative); Urine Ketones Negative (Negative); Urine Protein Negative (Neg-Trace)
[2024-10-04 10:49] LABS: Alanine Aminotransferase 39 U/L (0-31); Anion Gap 10 (12-20); Aspartate Amino Transferase 28 U/L (5-31); Blood Urea Nitrogen 12 mg/dL (9-16); Calcium 9.6 mg/dL (8.4-10.2); Carbon Dioxide 28 mmol/L (22-29); Chloride 105 mmol/L (96-108); Cholesterol 250 mg/dL (<200); Estimated Glomerular Filt Rate > 60; Glucose Fasting 107 mg/dL (60-99); HDL Cholesterol 62 mg/dL (>40); LDL Cholesterol Calculated 160 mg/dL (<100); Potassium 4.1 mmol/L (3.3-5.1); Sodium 139 mmol/L (135-145); Triglycerides 140 mg/dL (<150)
[2024-10-04 11:09] LABS: Free T4 (Free Thyroxine) 0.84 ng/dL (0.71-1.85); Vitamin D 25-OH Total 42.5 ng/mL (>30)
[2024-10-04 11:53] LABS: Estimated Average Glucose 114 mg/dL; Hemoglobin A1C 133.8023 umol/L; Hemoglobin A1c % 5.6 % (<6.0); Total Hemoglobin (HGBA1C) 3570.7012 umol/L
== END 2024-10-04 09:13 | disposition home or self-care (01) ==
LOC: HO.HMGCLDS 09:12
PROVIDERS: PCP Internal Medicine; Visit Provider Internal Medicine
DX: Z00.01 Encounter for general adult medical examination with abnormal findings (principal); Z85.3 Personal history of malignant neoplasm of breast; M85.89 Other specified disorders of bone density and structure, multiple sites; F41.1 Generalized anxiety disorder; E03.9 Hypothyroidism, unspecified; E78.2 Mixed hyperlipidemia; R73.01 Impaired fasting glucose; R35.0 Frequency of micturition
CPT/HCPCS: 36415; 80048; 80061; 81003; 82306; 83036; 84439; 84443; 84450; 84460

== ENCOUNTER 2025-02-26 08:04 | Outpatient (REF) | payer BC, SELFPAY ==
[2025-02-26 10:23] LABS: Estimated Average Glucose 117 mg/dL; Hemoglobin A1c % 5.7 % (<6.0); Total Hemoglobin (HGBA1C) 3690.7655 umol/L
[2025-02-26 11:49] LABS: Alanine Aminotransferase 70 U/L (0-31); Albumin Level 4.5 g/dL (3.5-5.0); Alkaline Phosphatase 137 U/L (39-117); Anion Gap 12 (12-20); Aspartate Amino Transferase 42 U/L (5-31); Blood Urea Nitrogen 14 mg/dL (9-16); Calcium 9.8 mg/dL (8.4-10.2); Carbon Dioxide 28 mmol/L (22-29); Chloride 106 mmol/L (96-108); Cholesterol 197 mg/dL (<200); Estimated Glomerular Filt Rate > 60; Glucose Fasting 105 mg/dL (60-99); HDL Cholesterol 54 mg/dL (>40); LDL Cholesterol Calculated 117 mg/dL (<100); Potassium 4.2 mmol/L (3.3-5.1); Sodium 142 mmol/L (135-145); Total Protein 7.4 g/dL (6.5-8.0); Triglycerides 131 mg/dL (<150)
== END 2025-02-26 08:05 | disposition home or self-care (01) ==
LOC: HO.HMGCLDS 08:04
PROVIDERS: PCP Internal Medicine; Visit Provider Internal Medicine
DX: E78.2 Mixed hyperlipidemia (principal); R73.01 Impaired fasting glucose
CPT/HCPCS: 36415; 80053; 80061; 83036

== ENCOUNTER 2025-04-18 08:05 | Outpatient (REF) | payer BC, SELFPAY ==
[2025-04-18 10:54] LABS: Alanine Aminotransferase 70 U/L (0-31); Albumin Level 4.6 g/dL (3.5-5.0); Alkaline Phosphatase 142 U/L (39-117); Anion Gap 12 (12-20); Aspartate Amino Transferase 48 U/L (5-31); Blood Urea Nitrogen 17 mg/dL (9-16); Calcium 10.2 mg/dL (8.4-10.2); Carbon Dioxide 29 mmol/L (22-29); Chloride 103 mmol/L (96-108); Cholesterol 193 mg/dL (<200); Estimated Glomerular Filt Rate > 60; HDL Cholesterol 60 mg/dL (>40); Potassium 4.0 mmol/L (3.3-5.1); Sodium 140 mmol/L (135-145); Total Protein 7.4 g/dL (6.5-8.0); Triglycerides 145 mg/dL (<150)
[2025-04-18 11:15] LABS: Free T4 (Free Thyroxine) 1.13 ng/dL (0.71-1.85); Thyroid Stimulating Hormone 0.76 uIU/mL (0.32-4.0)
== END 2025-04-18 08:06 | disposition home or self-care (01) ==
LOC: HO.HMGCLDS 08:05
PROVIDERS: PCP Internal Medicine; Visit Provider Internal Medicine
DX: E78.2 Mixed hyperlipidemia (principal); E03.9 Hypothyroidism, unspecified; R73.01 Impaired fasting glucose; M85.89 Other specified disorders of bone density and structure, multiple sites
CPT/HCPCS: 36415; 80053; 80061; 82306; 84439; 84443

== ENCOUNTER 2025-04-22 13:26 | Outpatient (AMB) | payer BC, SELFPAY ==
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
[2025-04-22 13:33] VITALS: BP 110/60; PULSE 66; RESP 15; TEMP 36.8; O2SAT 96; BMI 25.6
== END 2025-04-22 14:15 | disposition home or self-care (01) ==
PROVIDERS: PCP Internal Medicine; Visit Provider Internal Medicine
DX: E78.2 Mixed hyperlipidemia (principal); F41.1 Generalized anxiety disorder; R73.01 Impaired fasting glucose; E03.9 Hypothyroidism, unspecified; M85.89 Other specified disorders of bone density and structure, multiple sites; Z85.3 Personal history of malignant neoplasm of breast; J45.20 Mild intermittent asthma, uncomplicated

== ENCOUNTER → 2025-04-22 13:26 | Outpatient (BNVA) | payer BC, SELFPAY | PROVIDERS: PCP Internal Medicine; Visit Provider Internal Medicine | DX: F41.1 Generalized anxiety disorder (principal); E78.2 Mixed hyperlipidemia; E03.9 Hypothyroidism, unspecified; M85.89 Other specified disorders of bone density and structure, multiple sites; J45.20 Mild intermittent asthma, uncomplicated; Z90.12 Acquired absence of left breast and nipple; Z85.3 Personal history of malignant neoplasm of breast | CPT/HCPCS: 96127 ==

== ENCOUNTER 2025-09-01 09:38 | Outpatient (AMB) | payer BC, SELFPAY ==
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
[2025-09-01 10:48] VITALS: BP 124/82; PULSE 54; RESP 16; TEMP 36.9; O2SAT 97; BMI 26.3
--- OUTSIDE RECORDS SUMMARY | 2025-09-01 11:15 | XMS_ITS | Encounter Summary ---
Author Organization [facility] Address [address] [facility] [address] [place] [id number] Phone Care Team Providers Care Code Machine Operator Name Role Phone Matilde Cerrato MD Primary Care Provider Self-Referred, Patient Unavailable Unavailab Sonia Kelly MD Unavailable [phone] Sherlyn Arroyo MD, MPH Unavailable [phone] Marta Kumar MD Unavailable [phone] Laura High MD Unavailable [phone] Encounter Details Date Type Department Care Team (Late st Contact Info) Description 11/18/2020 Procedure Pass [facility] Periop 1st floor [address] [place] [address] Social History Tobacco Use Types Packs/Day Years Used Date Smoking Tobacco: Never Smokeless Tobacco: Never Alcohol Use Standard Drinks/Week Comments Yes 2 (1 standard drink = 0.6 oz pure alcohol) Have occasional glass of wine. Not every week Comments No Sex and Gender Information Value Date Recorded Sex Assigned at Not on file Legal Sex Female 12:46 PM EST Gender Identity Not on file Sexual Orientation Not on file documented as of this encounter Functional Status * Calculated C-SSRS Risk Score (Lifetime/Recent) Answer Date of Assessment Author No Risk Indicated 11/18/2020 2:56 PM EST Saundra Donahue RN * [place] Suicide Severity Rating Scale (Screener/Recent Self-Report) Question Answer Date of Assessment Author 1. Wish to be (Past 1 Month) No 11/18/2020 2:56 PM EST Saundra Donahue, SHAWANDA 2. Non-Specific Active Suicidal Thoughts (Past 1 Month) No 11/18/2020 2:56 PM EST Saundra Donahue, SHAWANDA 6. Suicidal Behavior (Lifetime) No 11/18/2020 2:56 PM EST Saundra Donahue, SHAWANDA documented as of this encounter Plan of Treatment Upcoming Encounters Date Type Department Care Team (Late st Contact Info) Description 07/15/2025 Procedure Pass [facility] [place] [address] [facility] [address] [place] [address] 09/02/2025 10:30 AM EST Office Visit [facility] at [place] [address] [facility] [address] [place] [address] Yulia Mg MD [address] [facility] [address] [place] [address] [email or web address] 01/14/2026 1:15 PM EDT Appointment [facility] [address] [facility] [address] [place] [address] Belen Glass PA-C [address] [place] [id number] [email or web address] 01/14/2026 3:30 PM EDT Office [facility] [place] [facility] [place] [address] [facility] 4th [place] [address] Sherlyn Arroyo MD, MPH [address] [place] [address] [email or web address] documented as of this encounter Visit Diagnoses Not on filedocumented in this encounter Care Teams Code Machine Operator Relationship Specialty Start Date End Date Matilde Cerrato MD [facility] [place] [address] PCP - General Internal Medicine 10/28/20 Self-Referred, Patient Referring Physician 10/28/2007/25 Sonia Herman MD [address] [place] [address] [email or web address] 11/06/20 Sherlyn Arroyo MD, MPH [address] [place] [id number] [email or web address] 11/06/20 Marta Kumar MD [address] [place] [phone] [email or web address] 11/06/20 Laura High MD [address] [place] [address] Department [place] [address] [email or web address] 12/14/20 documented as of this encounter Additional Source Comments The information contained in this document represents components of the legal health record. It is not the complete legal health record[facility]
--- OUTSIDE RECORDS SUMMARY | 2025-09-01 11:15 | XMS_ITS | Encounter Summary ---
Author Organization [facility] Address [address] [facility] [address] [place] [address] Phone Care Team Providers Care Funeral Director/Embalmer/Owner Name Role Phone Matilde Cerrato MD Primary Care Provider Sonia Herman MD Unavailable [phone] Sherlyn Arroyo MD, MPH Unavailable [phone] Marta Kumar MD Unavailable [phone] Laura High MD Unavailable [phone] Encounter Details Date Type Department Care Team (Late st Contact Info) Description 12/08/2023 Procedure Pass [facility] Cancer [facility], Mammography [address] 4th [place] [address] Social History Tobacco Use Types Packs/Day Years Used Date Smoking Tobacco: Never Smokeless Tobacco: Never Alcohol Use Standard Drinks/Week Comments Yes 2 (1 standard drink = 0.6 oz pure alcohol) Have occasional glass of wine. Not every week Education Answer Date Recorded Are you interested in more education? Not on marjorie e 02/03/2023 Are you concerned about learning? Not on file 02/03/2023 No 02/03/2023 No 02/03/2023 Digital Access Answer Date Recorded No 03/07/2023 No 03/07/2023 Reliable internet access at home? Not on file 03/07/2023 Device with a working camera? Not on file Comments No Sex and Gender Information Value Date Recorded Sex Assigned at Not on file Legal Sex Female 12:46 PM EST Gender Identity Not on file Sexual Orientation Not on file documented as of this encounter Plan of Treatment Upcoming Encounters Date Type Department Care Team (Late st Contact Info) Description 07/15/2025 Procedure Pass [facility] [place] 850 [facility] 560 [place] [address] 09/02/2025 10:30 AM EST Office Visit [facility] Plastic Surgery [place] [address] [place] [address] Yulia Mg MD [address] [facility] [place] [address] [email or web address] u 01/14/2026 1:15 PM EDT Appointment [facility] 850 [facility] 560 [place] [address] Belen Glass PA-C 450 [place] [address] [email or web address] 01/14/2026 3:30 PM EDT Office Visit [facility], Concepcion Rojas [place] [facility], Tia-[place] [facility] [place] [facility] [place] 300 [facility] 4th [place] [address] Sherlyn Arroyo MD, MPH 450 [place] [address] Karin@[email or web address] documented as of this encounter Visit Diagnoses Not on filedocumented in this encounter Care Teams Funeral Director/Embalmer/Owner Relationship Specialty Start Date End Date Matilde Cerrato MD [address] [facility] [place] [address] PCP - General Internal Medicine 10/28/20 Sonia Herman MD [address] [place] [address] Odalis@[facility] Oncology 11/06/20 Sherlyn Arroyo MD, MPH [address] [place] [address] Karin@[facility] Medical Oncology 11/06/20 Marta Kumar MD [address] [place] [address] [email or web address] Hematology and Oncology 11/06/20 Laura High MD [address] [place] [address] Department [place] [address] Mica@[facility] Radiation Oncology 12/14/20 documented as of this encounter Additional Source Comments The information contained in this document represents components of the legal health record. It is not the complete legal health record.[facility]
--- OUTSIDE RECORDS SUMMARY | 2025-09-01 11:15 | XMS_ITS | Encounter Summary ---
Author Organization [facility] Address [address] [facility] [address] [place] [address] Phone Care Team Providers Care Ambulatory Analyst Name Role Phone Matilde Cerrato MD Primary Care Provider Sonia Herman MD Unavailable [phone] Sherlyn Arroyo MD, MPH Unavailable [phone] Marta Kumar MD Unavailable [phone] Laura High MD Unavailable [phone] Encounter Details Date Type Department Care Team (Late st Contact Info) Description 08/11/2023 Procedure Pass [facility] Interventional Radiology [address] [place] [address] Social History Tobacco Use Types Packs/Day Years [...] st Contact Info) Description 07/15/2025 Procedure Pass [facility] [place] 850 [facility] 560 [place] [address] 09/02/2025 10:30 AM EST Office Visit [facility] Plastic Surgery at [place] 1153 [facility] [address] [place] [address] Yulia Mg MD 1153 [facility] [address] [place] [address] [email or web address] 01/14/2026 1:15 PM EDT Appointment [facility] 850 [facility] 560 [place] [address] Belen Glass PA-C 450 [place] [address] [email or web address] 01/14/2026 3:30 PM EDT Office Visit [facility], Concepcion Rojas [place] [facility], Tia-[place] [facility] [place] [facility] [place] [address] [address] Sherlyn Arroyo MD, MPH 450 [place] [address] Karin@[facility] documented as of this encounter Visit Diagnoses Not on filedocumented in this encounter Care Teams Ambulatory Analyst Relationship Specialty Start Date End Date Matilde Cerrato MD [address] [place] [address] PCP - General Internal Medicine 10/28/20 Sonia Herman MD [address] [place] [address] Odalis@[email or web address] Oncology 11/06/20 Sherlyn Arroyo MD, MPH [address] [place] [address] Karin@[email or web address] Medical Oncology 11/06/20 Marta Kumar MD [address] [place] [address] corby@[email or web address] Hematology and Oncology 11/06/20 Laura High MD [address] [place] [address] Department [place] [address] Mica@[email or web address] du Radiation Oncology 12/14/20 documented as of this encounter Additional Source Comments The information contained in this document represents components of the legal health record. It is not the complete legal health record.[facility]
--- OUTSIDE RECORDS SUMMARY | 2025-09-01 11:15 | XMS_ITS | Encounter Summary ---
Author Organization [facility] Address [address] [place] [address] Phone Care Team Providers Care Senior Analysis Specialist Name Role Phone Matilde Cerrato MD Primary Care Provider Self-Referred, Patient Unavailable Unavailab Sonia Kelly MD Unavailable [phone] Sherlyn Arroyo MD, MPH Unavailable [phone] Marta Kumar MD Unavailable [phone] Laura High MD Unavailable [phone] Encounter Details Date Type Department Care Team (Late st Contact Info) Description 05/20/2022 Procedure Pass [facility], [facility] 300 [facility] 4th [place] [address] Social History Tobacco Use Types Packs/Day Years [...] Encounters Date Type Department Care Team (Late Contact Info) Description 07/15/2025 Procedure Pass [facility]'s Email Campaign Specialist Center 850 [facility] [address] [place] [address] 09/02/2025 10:30 AM EST Office Visit [facility] Plastic [facility] [place] [address] [place] [address] Yulia Mg MD [address] [place] [address] [email or web address] 01/14/2026 1:15 PM EDT Appointment [facility] Email Campaign Specialist [facility] 850 [facility] [address] [place] [address] Belen Glass PA-C 450 [place] [address] Williams@[facility] 01/14/2026 3:30 PM EDT Office Visit [facility], Concepcion Rojas [place] [facility], Tia-[place] [facility] [place] [facility] [place] 300 [facility] 4th [place] [address] Sherlyn Arroyo MD, MPH 450 [place] [address] Karin@[facility] documented as of this encounter Visit Diagnoses Not on filedocumented in this encounter Care Teams Senior Analysis Specialist Relationship Specialty Start Date End Date Matilde Cerrato MD [address] [place] [address] PCP - General Internal Medicine 10/28/20 Self-Referred, Patient Referring Physician 10/28/2007/25 Sonia Herman MD [address] [place] [address] Odalis@[facility] Oncology 11/06/20 Sherlyn Arroyo MD, MPH [address] [place] [address] Karin@[email or web address] Medical Oncology 11/06/20 Marta Kumar MD [address] [place] [address] corby@[email or web address] Hematology and Oncology 11/06/20 Laura High MD [address] [place] [address] Department [place] [address] Mica@[email or web address] Radiation Oncology 12/14/20 documented as of this encounter Additional Source Comments The information contained in this document represents components of the legal health record. It is not the complete legal health record.[facility]
--- OUTSIDE RECORDS SUMMARY | 2025-09-01 11:15 | XMS_ITS | Encounter Summary ---
Author Organization [facility] Address [address] [facility] [address] [place] [address] Phone Care Team Providers Care Railroad Operating Engineer Name Role Phone Matilde Cerrato MD Primary Care Provider Sonia Herman MD Unavailable [phone] Sherlyn Arroyo MD, MPH Unavailable [phone] Marta Kumar MD Unavailable [phone] Laura High MD Unavailable [phone] Encounter Details Date Type Department Care Team (Late st Contact Info) Description 07/26/2023 Procedure Pass [facility], Ct Scan - [address] [address] Social History Tobacco Use Types Packs/Day Years [...] st Contact Info) Description 07/15/2025 Procedure Pass [facility] [place] 850 [facility] 560 [place] [address] 09/02/2025 10:30 AM EST Office Visit [facility] Plastic Surgery at [place] [address] [place] [address] Yulia Mg MD [address] [place] [address] [email or web address] 01/14/2026 1:15 PM EDT Appointment [facility] 850 [facility] 560 [place] [address] Belen Glass PA-C [address] [place] [address] Williams@[facility] 01/14/2026 3:30 PM EDT Office Visit [facility], Concepcion Rojas [place] [facility], Tia-Kiel Cancer [place] at [place] [address] [address] Sherlyn Arroyo MD, MPH 450 [place] [address] Karin@[facility] documented as of this encounter Visit Diagnoses Not on filedocumented in this encounter Care Teams Railroad Operating Engineer Relationship Specialty Start Date End Date Matilde Cerrato MD [address] [place] [address] PCP - General Internal Medicine 10/28/20 Sonia Herman MD [address] [place] [address] Odalis@[facility] Oncology 11/06/20 Sherlyn Arroyo MD, MPH [address] [place] [address] Karin@[facility] Medical Oncology 11/06/20 Marta Kumar MD [address] [place] [address] corby@[email or web address] Hematology and Oncology 11/06/20 Laura High MD [address] [place] [address] Department [place] [address] Mica@[email or web address] du Radiation Oncology 12/14/20 documented as of this encounter Additional Source Comments The information contained in this document represents components of the legal health record. It is not the complete legal health record.[facility]
--- OUTSIDE RECORDS SUMMARY | 2025-09-01 11:15 | XMS_ITS | Encounter Summary ---
Author Organization [facility] Address 399 [facility] [address] [place] [address] Phone Care Team Providers Care Superintendent Refuse Disposal Name Role Phone Matilde Cerrato MD Primary Care Provider Self-Referred, Patient Unavailable Unavailab Sonia Kelly MD Unavailable [phone] Sherlyn Arroyo MD, MPH Unavailable [phone] Marta Kumar MD Unavailable [phone] Laura High MD Unavailable [phone] Encounter Details Date Type Department Care Team (Late Contact Info) Description 11/06/2020 Procedure Pass [facility] 115[address] [facility] [address] [place] [address] Social History Tobacco Use Types Packs/Day Years [...] (Late Contact Info) Description 07/15/2025 Procedure Pass [facility] 850 [facility] [address] [place] [address] 09/02/2025 10:30 AM EST Office Visit [facility] Plastic Surgery at [place] [address] [place] [address] Yulia Mg MD [address] [place] [address] [email or web address] u 01/14/2026 1:15 PM EDT Appointment [facility] 850 [facility] [address] [place] [address] Belen Glass PA-C 450 [place] [address] Williams@[facility] 01/14/2026 3:30 PM EDT Office Visit [facility], Concepcion Rojas [place] [facility], Tia-[facility]iel [facility] [place] [facility] [place] 300 [facility] 4th [place] [address] Sherlyn Arroyo MD, MPH 450 [place] [address] Karin@[facility] documented as of this encounter Visit Diagnoses Not on filedocumented in this encounter Care Teams Superintendent Refuse Disposal Relationship Specialty Start Date End Date Matilde Cerrato MD [address] [facility] [place] [address] PCP - General Internal Medicine 10/28/20 Self-Referred, Patient Referring Physician 10/28/2007/25 Sonia Herman MD [address] [place] [address] Odalis@[facility] Oncology 11/06/20 Sherlyn Arroyo MD, MPH [address] [place] [address] Karin@[facility] Medical Oncology 11/06/20 Marta Kumar MD [address] [place] [address] corby@[facility] Hematology and Oncology 11/06/20 Laura High MD [address] [place] [address] Department [place] [address] Mica@[facility] Radiation Oncology 12/14/20 documented as of this encounter Additional Source Comments The information contained in this document represents components of the legal health record. It is not the complete legal health record.[facility]
--- OUTSIDE RECORDS SUMMARY | 2025-09-01 11:15 | XMS_ITS | Encounter Summary ---
Author Organization [facility] Address 399 [facility] [address] [place] [address] Phone Care Team Providers Care Frame Gate Mortiser Operator Name Role Phone Matilde Cerrato MD Primary Care Provider Self-Referred, Patient Unavailable Unavailab Sonia Kelly MD Unavailable [phone] Sherlyn Arroyo MD, MPH Unavailable [phone] Marta Kumar MD Unavailable [phone] Laura High MD Unavailable [phone] Encounter Details Date Type Department Care Team (Late Contact Info) Description 11/26/2021 Procedure Pass [facility] [place], Mammography, [place] Imaging Department [address] [place] [address] Social History Tobacco Use Types Packs/Day Years [...] (Late Contact Info) Description 07/15/2025 Procedure Pass [facility] and [facility] Functional Manager [facility] 850 [facility] [address] [place] [address] 09/02/2025 10:30 AM EST Office Visit [facility] Plastic Surgery [place] [address] [place] [address] Yulia Mg MD [address] [place] [address] [email or web address] u 01/14/2026 1:15 PM EDT Appointment [facility] 850 [facility] [address] [place] [address] Belen Glass PA-C 450 [place] [address] Williams@[facility] 01/14/2026 3:30 PM EDT Office Visit [facility], Concepcion Rojas [place] [facility], Tia-Kiel Cancer [place] [facility] [place] 300 [facility] 4th [place] [address] Sherlyn Arroyo MD, MPH 450 [place] [address] Karin@[facility] documented as of this encounter Visit Diagnoses Not on filedocumented in this encounter Care Teams Frame Gate Mortiser Operator Relationship Specialty Start Date End Date Matilde Cerrato MD [address] [facility] [place] [address] PCP - General Internal Medicine 10/28/20 Self-Referred, Patient Referring Physician 10/28/2007/25 Sonia Herman MD [address] [place] [address] Odalis@[facility] Oncology 11/06/20 Sherlyn Arroyo MD, MPH [address] [place] [address] Karin@[facility] Medical Oncology 11/06/20 Marta Kumar MD [address] [place] [address] [email or web address] Hematology and Oncology 11/06/20 Laura High MD [address] [place] [address] Department [place] [address] Mica@[email or web address] Radiation Oncology 12/14/20 documented as of this encounter Additional Source Comments The information contained in this document represents components of the legal health record. It is not the complete legal health record.[facility]
--- OUTSIDE RECORDS SUMMARY | 2025-09-01 11:15 | XMS_ITS | Encounter Summary ---
Author Organization [facility] Address [address] [facility] [address] [place] [address] Phone Care Team Providers Care Campus Executive Director Name Role Phone Matilde Cerrato MD Primary Care Provider Sonia Herman MD Unavailable [phone] Sherlyn Arroyo MD, MPH Unavailable [phone] Marta Kumar MD Unavailable [phone] Laura High MD Unavailable [phone] Encounter Details Date Type Department Care Team (Late st Contact Info) Description 08/01/2024 Ancillary Orders [facility], Conce[facility]ion [facility], [facility] [place] [facility] [place] 300 [place] [address] Francesca Wang, ORTHOPEDIC PHYSICIAN 450 [place] [address] [place]@[email or web address] Invasive lobular carcinoma of left breast in female (Primary Dx); Abnormal MRI, breast Social History Tobacco Use Types Packs/Day Years [...] st Contact Info) Description 07/15/2025 Procedure Pass [facility] 850 [facility] 560 [place] [address] 09/02/2025 10:30 AM EST Office Visit [facility] Pl[facility] Surgery at [place] [address] [place] [address] [address] [place] [address] Yulia Mg MD [address] [place] [address] [address] [place] [address] [email or web address] 01/14/2026 1:15 PM EDT Appointment [facility] 850 [facility] 560 [place] [address] Belen Glass PA-C [address] [place] [address] [email or web address] 01/14/2026 3:30 PM EDT Office Visit [facility], Concepcion [facility], [facility] [place] [facility] [place] 300 [facility] 4th [place] [address] Sherlyn Arroyo MD, MPH 450 [place] [address] Karin@[facility] documented as of this encounter Visit Diagnoses Diagnosis Invasive lobular carcinoma of left breast in female- Primary Abnormal MRI, breast Personal history of breast cancer- Primary Personal history of malignant neoplasm of breast Acquired absence of left breast and nipple documented in this encounter Care Teams Campus Executive Director Relationship Specialty Start Date End Date Matilde Cerrato MD [facility] [place] [address] PCP - General Internal Medicine 10/28/20 Sonia Herman MD [address] [place] [address] Odalis@[facility] Oncology 11/06/20 Sherlyn Arroyo MD, MPH [address] [place] [address] Karin@[facility] Medical Oncology 11/06/20 Marta Kumar MD [address] [place] [address] corby@[employer] Hematology and Oncology 11/06/20 Laura High MD [address] [place] [address] Department [place] [address] Mica@[email or web address] du Radiation Oncology 12/14/20 documented as of this encounter Additional Source Comments The information contained in this document represents components of the legal health record. It is not the complete legal health record.[facility]
--- OUTSIDE RECORDS SUMMARY | 2025-09-01 11:15 | XMS_ITS | Encounter Summary ---
Author Organization [facility] Address [address] [facility] [address] [place] [address] Phone Care Team Providers Care Leaf Sorter Name Role Phone Matilde Cerrato MD Primary Care Provider Self-Referred, Patient Unavailable Unavailab Sonia Kelly MD Unavailable [phone] Sherlyn Arroyo MD, MPH Unavailable [phone] Marta Kumar MD Unavailable [phone] Laura High MD Unavailable [phone] Encounter Details Date Type Department Care Team (Late st Contact Info) Description 11/13/2020 Ancillary Orders [facility], [facility], [facility] [address] [place] [address], 9th [place] [address] Sabino Huddleston PA-C [address] [place] [address] [email or web address] Invasive lobular carcinoma of left breast in female Social History Tobacco Use Types Packs/Day Years [...] st Contact Info) Description 07/15/2025 Procedure Pass [facility] [place] [address] [facility] [address] [place] [address] 09/02/2025 10:30 AM EST Office Visit [facility] [place] [address] [place] [address] Yulia Mg MD [address] [place] [address] [email or web address] 01/14/2026 1:15 PM EDT Appointment [facility] [address] [facility] [address] [place] [address] Belen Glass PA-C [address] [place] [address] [email or web address] 01/14/2026 3:30 PM EDT Office Visit [facility], [facility], [facility] [place] [facility] [place] [address] [facility] [address]th [place] [address] Sherlyn Arroyo MD, MPH [address] [place] [address] [email or web address] documented as of this encounter Results * (ABNORMAL) BI MAMMOGRAM DIAGNOSTIC WITH TOMOSYNTHESIS WITH CAD (BILATERAL) (11/13/2020 3:25 PM EST) Anatomical Region Laterality Modality Breast Left, Breast Right, Breast Bilateral Bila teral Mammography 11/13/2020 3:32 PM EST Impressions 11/13/2020 3:55 PM EST Left Breast: Category 6. Biopsy-proven invasive lobular carcinoma presenting as a palpable irregular mass within the lower outer quadrant, as well as central and lower inner quadrant on breast MRI. No other suspicious findings on mammography. Recommendation: Surgical consultation at this time. Right Breast: Category 2. Benign findings. No mammographic evidence of malignancy. Recommendation: Routine screening in 1 year. Results were discussed with the patient and a written summary was provided at the time of the study. OVERALL ASSESSMENT -- BI-RADS 6 KNOWN BIOPSY PROVEN MALIGNANCY Narrative 11/13/2020 3:55 PM EST Reason for exam (per EHR order): Other Indication (Please use free text); 55F with left brast cancer, who is planning for a left mastecotmy; radiology recommended a right diagnsotic mammogram Additional clinical information obtained from the EHR: 55-year-old female with newly diagnosed palpable left invasive lobular carcinoma, recent consult recommended bilateral diagnostic mammogram because only synthetic mammography was available for review. TECHNIQUE: Digital Mammography and tomosynthesis were used to obtain images. Computer Aided Detection was used to aid in interpretation and volumetric breast density assessment may have been used as an aid in evaluating breast density. COMPARISON: Comparison is made with relevant prior imaging in PACS. Breast Composition: extremely dense which lowers the sensitivity of mammography. FINDINGS: Left Breast: There is an irregular spiculated mass involving predominantly in the lower inner and lower outer breast as well as the central breast, better appreciated on MRI dated October 12, 2020. A butterfly clip appears in appropriate position denoting biopsy-proven invasive lobular carcinoma. The patient is status post MRI guided biopsy with cylinder clip, assessed on RC consult as in appropriate position. No other suspicious calcifications or findings are present. Right Breast: Questioned asymmetry is noted in the inner breast on cc view only which appears pliable on additional views. A cylinder clip is present in the central breast, assessed on RC consult as in appropriate position. Targeted ultrasound in area of asymmetry demonstrates a 1.6 x 0.8 cm anechoic mass at 3:00, 1 to 2 cm from the nipple with adjacent hyper echogenicity, consistent with a hematoma. After discussion with the patient, the patient reported that she had a palpable hematoma that has been resolving over time. No new suspicious findings are present in the right breast. Procedure Note Elzbieta Paetl MD - 11/13/2020 Reason for exam (per EHR order): Other Indication (Please use free text);55F with left brast cancer, who is planning for a left mastecotmy;radiology recommended a right diagnsotic mammogram Additional clinical information obtained from the EHR: 55-year-old female with newly diagnosed palpable left invasive lobularcarcinoma, recent consult recommended bilateral diagnostic mammogrambecause only synthetic mammography was available for review. TECHNIQUE: Digital Mammography and tomosynthesis were used to obtain images. ComputerAided Detection was used to aid in interpretation and volumetric breastdensity assessment may have been used as an aid in evaluating breastdensity. COMPARISON: Comparison is made with relevant prior imaging in PACS. Breast Composition: extremely dense which lowers the sensitivity ofmammography. FINDINGS: Left Breast: There is an irregular spiculated mass involving predominantly in the lowerinner and lower outer breast as well as the central breast, betterappreciated on MRI dated October 12, 2020. A butterfly clip appears inappropriate position denoting biopsy-proven invasive lobular carcinoma.The patient is status post MRI guided biopsy with cylinder clip, assessedon RC consult as in appropriate position. No other suspiciouscalcifications or findings are present. Right Breast: Questioned asymmetry is noted in the inner breast on cc view only whichappears pliable on additional views. A cylinder clip is present in thecentral breast, assessed on RC consult as in appropriate position.Targeted ultrasound in area of asymmetry demonstrates a 1.6 x 0.8 cmanechoic mass at 3:00, 1 to 2 cm from the nipple with adjacent hyperechogenicity, consistent with a hematoma. After discussion with thepatient, the patient reported that she had a palpable hematoma that hasbeen resolving over time. No new suspicious findings are present in theright breast. IMPRESSION: Left Breast: Category 6. Biopsy-proven invasive lobular carcinoma presenting as a palpableirregular mass within the lower outer quadrant, as well as central andlower inner quadrant on breast MRI. No other suspicious findings onmammography. Recommendation: Surgical consultation at this time. Right Breast: Category 2. Benign findings. No mammographic evidence of malignancy. Recommendation: Routine screening in 1 year. Results were discussed with the patient and a written summary was providedat the time of the study. OVERALL ASSESSMENT -- BI-RADS 6 KNOWN BIOPSY PROVEN MALIGNANCY Sonia Herman MD IMG MG EXAMS Final Result documented in this encounter Visit Diagnoses Diagnosis Invasive lobular carcinoma of left breast in female Invasive lobular carcinoma of left breast in female Personal history of breast cancer- Primary Personal history of malignant neoplasm of breast Acquired absence of left breast and nipple documented in this encounter Care Teams Leaf Sorter Relationship Specialty Start Date End Date Matilde Cerrato MD [address] [place] [address] PCP - General Internal Medicine 10/28/20 Self-Referred, Patient Referring Physician 10/28/2007/25 Sonia Herman MD [address] [place] [address] [email or web address] 11/06/20 Sherlyn Arroyo MD, MPH [address] [place] [address] [email or web address] Medical Oncology 11/06/20 Marta Kumar MD [address] [place] [address] [email or web address] Hematology [email or web address] Oncology 11/06/20 Laura High MD [address] [place] [address] Department [place] [address] [email or web address] Radiation Oncology 12/14/20 documented as of this encounter Additional Source Comments The information contained in this document represents components of the legal health record. It is not the complete legal health record.[facility]
--- OUTSIDE RECORDS SUMMARY | 2025-09-01 11:15 | XMS_ITS | Encounter Summary ---
Author Organization [facility] Address [address] [facility] [address] [place] [address] Phone Care Team Providers Care Rock Splitter Name Role Phone Matilde Cerrato MD Primary Care Provider Self-Referred, Patient Unavailable Unavailab Sonia Kelly MD Unavailable [phone] Sherlyn Arroyo MD, MPH Unavailable [phone] Marta Kumar MD Unavailable [phone] Laura High MD Unavailable [phone] Encounter Details Date Type Department Care Team (Late st Contact Info) Description 11/30/2021 Ancillary Orders [facility] [address] [place] [address] Sherlyn Arroyo MD, MPH [address] [place] [address] [email or web address] Invasive lobular carcinoma of left breast in [...] st Contact Info) Description 07/15/2025 Procedure Pass [facility] [place] [address] [facility] [address] [place] [address] 09/02/2025 10:30 AM EST Office Visit [facility] Plastic Surgery at [place] [address] [facility] [address] [place] [address] Yulia Mg MD [address] [place] [address] [email or web address] 01/14/2026 1:15 PM EDT Appointment [facility] [address] [facility] [address] [place] [address] Belen Glass PA-C [address] [place] [address] [email or web address] 01/14/2026 3:30 PM EDT Office Visit [facility], [facility], [facility] [place] [facility] [place] [address] [facility] [address]th [place] [address] Sherlyn Arroyo MD, MPH [address] [place] [address] [email or web address] documented as of this encounter Visit Diagnoses Diagnosis Invasive lobular carcinoma of left breast in female Personal history of breast cancer- Primary Personal history of malignant neoplasm of breast Acquired absence of left breast and nipple documented in this encounter Care Teams Rock Splitter Relationship Specialty Start Date End Date Matilde Cerrato MD [address] [place] [address] PCP - General Internal Medicine 10/28/20 Self-Referred, Patient Referring Physician 1/20/21 10/17 /23 Sonia Herman MD [address] [place] [address] [email or web address] Oncology 11/06/20 Sherlyn Arroyo MD, MPH [address] [place] [address] [email or web address] Medical [email or web address] 11/06/20 Marta Kumar MD [address] [place] [address] [email or web address] Hematology and Oncology 11/06/20 Laura High MD [address] [place] [address] Department of [place] [address] [email or web address] Radiation Oncology 12/14/20 documented as of this encounter Additional Source Comments The information contained in this document represents components of the legal health record. It is not the complete legal health record.[facility]
--- OUTSIDE RECORDS SUMMARY | 2025-09-01 11:15 | XMS_ITS | Encounter Summary ---
Author Organization [facility] Address [address] [facility] [address] [place] [address] Phone Care Team Providers Care Leak Gang Supervisor Name Role Phone Matilde Cerrato MD Primary Care Provider Self-Referred, Patient Unavailable Unavailab Sonia Kelly MD Unavailable [phone] Sherlyn Arroyo MD, MPH Unavailable [phone] Marta Kumar MD Unavailable [phone] Laura High MD Unavailable [phone] Reason for Referral * Outpatient Procedure - Closed Specialty Diagnoses / Procedures Referred By Meghna munguia Referred To Contact Radiology Diagnoses Invasive lobular carcinoma of left breast in female Procedures MRI Breast (Right) MRP Biopsy Breast (Right) CT BX BREAST W DEVICE 1ST LESION MAGNETIC RES GUIDE CHG X-RAY EXAM, BREAST SPECIMEN CHG MRI BREAST W/OUT&WITH CONTRAST W/CAD UNILATERAL Sherlyn Arroyo MD, MPH Phone: tel: fax: mailto:[email or web address] Referral ID Status Reason Start Date Expiration Date Visits Re quested Visits Authorized [id number] Closed 12/15/2021 12/15/2021 1 1 Encounter Details Date Type Department Care Team ([facility] st Contact Info) Description 12/15/20[address]illary [address] [facility] [address] [facility] [address]nd [place] [address] Sherlyn Arroyo MD, MPH [address] [place] [address] [email or web address] Invasive lobular carcinoma of left breast [...] st Contact Info) Description 07/15/2025 Procedure Pass [facility] [place] [address] [facility] [address] [place] [address] 09/02/2025 10:30 AM EST Office Visit [facility] at [place] [address] [facility] [address] [place] [address] Yulia Mg MD [address] [facility] [address] [place] [address] [email or web address] 01/14/2026 1:15 PM EDT Appointment [facility] [place] [address] [facility] [address] [place] [address] Belen Glass PA-C 450 [place] [address] [email or web address] 01/14/2026 3:30 PM EDT Office Visit [facility], [facility], [facility] [facility] [place] [facility] [place] [address] [facility] [address] [place] [address] Sherlyn Arroyo MD, MPH [address] [place] [phone] [email or web address] documented as of this encounter Results * BI MRI BREAST WITH AND WITHOUT CONTRAST (RIGHT) (12/15/2021 11:03 AM EST) Anatomical Region Laterality Modality Breast Right, Breast Bilateral Right M agnetic Resonance 12/15/2021 11:3 1 AM EST Impressions 12/15/2021 3:56 PM EST Right Breast: BI-RADS Category 3: Probably benign. Probably benign 5 mm focus of enhancement in the slightly inner slightly upper retroareolar right breast is decreased in conspicuity compared to prior MRI and likely represents background parenchymal enhancement. The planned MRI guided biopsy was therefore not performed. Recommend follow-up MRI in 6 months to confirm stability of this and the additional foci of enhancement as described in prior MRI report. Recommendation: Diagnostic breast MRI in 6 months. OVERALL ASSESSMENT -- 3 PROBABLY BENIGN Needs follow up imaging Follow-up recommendations were communicated and documented using the Alert Notification of Critical Radiology Results (ANCR) system. ATTESTATION: Patricio Myers, as teaching physician have reviewed the images, if any, for this patient's exam, and if necessary, have edited the report originally created by Catarino Rosario. Narrative 12/15/2021 3:56 PM EST Reason for exam (per EHR order): * Breast cancer screening, intermediate risk, 15-20% lifetime risk; abnormal breast imaging Additional clinical information obtained from the EHR: 5 mm focus of enhancement in the slightly inner slightly upper retroareolar right breast for which MRI-guided core biopsy is recommended. History of right MRI guided biopsy of non-mass enhancement at 3:00, with placement of cork clip, with benign pathology. Additionally, by report, an additional attempt to biopsy non-mass enhancement in the right breast at 4:00 was attempted, but the finding was resolved at that time. Pertinent imaging studies and/or documents were reviewed. The patient identification and procedure were verified. The patient's known allergies, current medications and adverse medication reactions were reviewed. The procedure was explained to the patient, including benefits, risks, and alternatives, and written consent was obtained. A safety pause was observed immediately prior to the procedure. TECHNIQUE: The patient was placed prone in the MRI magnet in the usual fashion. Using a 3.0 Karin magnet, dedicated breast coil and breast compression, preliminary sagittal and axial T1-weighted fat-suppressed images were obtained to confirm satisfactory positioning. IVCM: Administered. FINDINGS: Right Breast: Following intravenous injection of gadolinium contrast, additional sagittal and axial images were obtained. The target lesion in the slightly inner slightly upper retroareolar right breast was identified, but demonstrated only minimal enhancement and was not reliably distinguished from background parenchymal enhancement of the surrounding glandular tissue. This location is similar to site of prior benign MRI guided biopsy. It was also noted that the retroareolar location of the target would be technically challenging for MRI guided biopsy. Decision was made to follow the probably benign finding rather than perform the biopsy. Procedure Note Patricio Escalera MD - 12/15/2021 Reason for exam (per EHR order): * Breast cancer screening, intermediaterisk, 15-20% lifetime risk; abnormal breast imaging Additional clinical information obtained from the EHR: 5 mm focus of enhancement in the slightly inner slightly upperretroareolar right breast for which MRI-guided core biopsy is recommended.History of right MRI guided biopsy of non-mass enhancement at 3:00, withplacement of cork clip, with benign pathology. Additionally, by report, anadditional attempt to biopsy non-mass enhancement in the right breast at4:00 was attempted, but the finding was resolved at that time. Pertinent imaging studies and/or documents were reviewed. The patientidentification and procedure were verified. The patient's known allergies,current medications and adverse medication reactions were reviewed. Theprocedure was explained to the patient, including benefits, risks, andalternatives, and written consent was obtained. A safety pause wasobserved immediately prior to the procedure. TECHNIQUE: The patient was placed prone in the MRI magnet in the usual fashion. Usinga 3.0 Karin magnet, dedicated breast coil and breast compression,preliminary sagittal and axial T1-weighted fat-suppressed images wereobtained to confirm satisfactory positioning. IVCM: Administered. FINDINGS: Right Breast: Following intravenous injection of gadolinium contrast, additionalsagittal and axial images were obtained. The target lesion in the slightlyinner slightly upper retroareolar right breast was identified, butdemonstrated only minimal enhancement and was not reliably distinguishedfrom background parenchymal enhancement of the surrounding glandulartissue. This location is similar to site of prior benign MRI guidedbiopsy. It was also noted that the retroareolar location of the targetwould be technically challenging for MRI guided biopsy. Decision was madeto follow the probably benign finding rather than perform the biopsy. IMPRESSION: Right Breast: BI-RADS Category 3: Probably benign. Probably benign 5 mm focus of enhancement in the slightly inner slightlyupper retroareolar right breast is decreased in conspicuity compared toprior MRI and likely represents background parenchymal enhancement. Theplanned MRI guided biopsy was therefore not performed. Recommend follow-upMRI in 6 months to confirm stability of this and the additional foci ofenhancement as described in prior MRI report. Recommendation: Diagnostic breast MRI in 6 months. OVERALL ASSESSMENT -- 3 PROBABLY BENIGN Needs follow up imagingFollow-up recommendations were communicated and documented using the AlertNotification of Critical Radiology Results (ANCR) system. ATTESTATION: Patricio Myers, as teaching physician have reviewed theimages, if any, for this patient's exam, and if necessary, have edited thereport originally created by Catarino Rosario. us Sherlyn Arroyo MD, MPH IMG MR BREAST Final Resul t documented in this encounter Visit Diagnoses Diagnosis Invasive lobular carcinoma of left breast in female Invasive lobular carcinoma of left breast in female Personal history of breast cancer- Primary Personal history of malignant neoplasm of breast Acquired absence of left breast and nipple documented in this encounter Care Teams Leak Gang Supervisor Relationship Specialty Start Date End Date Matilde Cerrato MD [address] [place] [address] PCP - General Internal Medicine 10/28/20 Self-Referred, Patient Referring Physician 10/28/2007/25 Sonia Herman MD [address] [place] [address] [email or web address] Oncology 11/06/20 Sherlyn Arroyo MD, MPH [address] [place] [address] [email or web address] Medical Oncology 11/06/20 Marta Kumar MD [address] [place] [address] [email or web address] H[facility] On[facility] 11/06/20 Laura High MD [address] [place] [address] Department [place] [address] [email or web address] Radiation Oncology 12/14/20 documented as of this encounter Additional Source Comments The information contained in this document represents components of the legal health record. It is not the complete legal health record.[facility]
--- OUTSIDE RECORDS SUMMARY | 2025-09-01 11:15 | XMS_ITS | Encounter Summary ---
Author Organization [facility] Address [address] [place] [address] Phone Care Team Providers Care Health Services Director Name Role Phone Matilde Cerrato MD Primary Care Provider Self-Referred, Patient Unavailable Unavailab Sonia Kelly MD Unavailable [phone] Sherlyn Arroyo MD, MPH Unavailable [phone] Marta Kumar MD Unavailable [phone] Laura High MD Unavailable [phone] Encounter Details Date Type Department Care Team (Late Contact Info) Description 11/30/2021 Procedure Pass [facility] Radiology [address] [facility] 2nd [place] [address] Social History Tobacco Use Types Packs/Day Years [...] (Late Contact Info) Description 07/15/2025 Procedure Pass [facility] Clinical Documentation Clerk Center [address] [facility] [address] [place] [address] 09/02/2025 10:30 AM EST Office Visit [facility] Plastic Surgery at [place] [address] [place] [address] Yuila Mg MD [address] [place] [address] [email or web address] 01/14/2026 1:15 PM EDT Appointment [facility] Women's Clinical Documentation Clerk Center [address] [facility] [address] [place] [address] Belen Glass PA-C 450 [place] [address] [email or web address] 234 BEDS AT [facility] 01/14/2026 3:30 PM EDT Office Visit [facility], Concepcion Rojas [place] [facility], T[facility] [place] [facility] [place] [address] [facility] 4th [place] [address] Sherlyn Arroyo MD, MPH 450 [place] [address] [email or web address] documented as of this encounter Visit Diagnoses Not on filedocumented in this encounter Care Teams Health Services Director Relationship Specialty Start Date End Date Matilde Cerrato MD [facility] [place] [address] PCP - General Internal Medicine 10/28/20 Self-Referred, Patient Referring Physician 10/28/2007/25 Sonia Herman MD [address] [place] [address] Odalis@[email or web address] Oncology 11/06/20 Sherlyn Arroyo MD, MPH [address] [place] [address] [email or web address] Medical Oncology 11/06/20 Marta Kumar MD [address] [place] [address] [email or web address] Hematology and Oncology 11/06/20 Laura High MD [address] [place] [address] Department [place] [address] [email or web address] Radiation Oncology 12/14/20 documented as of this encounter Additional Source Comments The information contained in this document represents components of the legal health record. It is not the complete legal health record.[facility]
--- OUTSIDE RECORDS SUMMARY | 2025-09-01 11:15 | XMS_ITS | Encounter Summary ---
Author Organization [facility] Address [address] [facility] [address] [place] [address] Phone Care Team Providers Care Channel Man Name Role Phone Matilde Cerrato MD Primary Care Provider Sonia Herman MD Unavailable [phone] Sherlyn Arroyo MD, MPH Unavailable Marta Kumar MD Unavailable [phone] Laura High MD Unavailable [phone] Encounter Details Date Type Department Care Team (Late st Contact Info) Description 08/09/2024 Ancillary Orders [facility], [facility], [facility] [place] [facility] [place] 300 [place] [address] Francesca Wang, CARTON FOLDER 450 [place] [address] Orlando@[email or web address] Invasive lobular carcinoma of left breast in [...] st Contact Info) Description 07/15/2025 Procedure Pass [facility] [address] [facility] 560 [place] [address] 09/02/2025 10:30 AM EST Office [facility] Plastic Surgery at [place] [address] [place] [address] [address] [place] [address] Yulia Mg MD [address] [place] [address] [address] [place] [address] [email or web address] 01/14/2026 1:15 PM EDT Appointment [facility] [address] [facility] 560 [place] [address] Belen Glass PA-C [address] [place] [address] [email or web address] 01/14/2026 3:30 PM EDT Office Visit [facility], [facility]ion [facility], [facility] [place] [facility] [place] [address] [facility] 4th [place] [address] Sherlyn Arroyo MD, MPH 450 [place] [address] [email or web address] documented as of this encounter Results * US Axilla - Breast Imaging (Left) (08/09/2024 8:51 AM EDT) Anatomical Region Laterality Modality Breast Ultrasound 08/09/2024 7:24 PM EDT Impressions 08/09/2024 7:26 PM EDT No imaging findings to account for the clinical symptoms of left axilla pain. Management of pain should be based on the level of clinical concern. Negative imaging findings should not preclude biopsy of any clinically suspicious finding. BI-RADS 1 NEGATIVE Results and recommendations were communicated to the patient at time of examination. Narrative 08/09/2024 7:26 PM EDT US AXILLA FOR BREAST IMAGING (LEFT) Additional patient information: Focal pain. Status post left mastectomy. Subcutaneous enhancement in the upper axilla on recent MRI. TECHNIQUE: Targeted left axillary ultrasound was performed. COMPARISON: Comparison is made with relevant prior imaging. FINDINGS: Targeted left ultrasound was performed in the area of clinical concern as indicated by the patient. . The area of pain in the left axilla at approximately 12:00 position 11 to 12 cm from expected nipple reveals no suspicious abnormalities. Visualized left axillary lymph nodes appear normal. The entire upper outer aspect of the left breast was scanned. No suspicious abnormalities are seen. Partially visualized implant is noted. Procedure Note Yue Whitney MD - 08/09/2024 US AXILLA FOR BREAST IMAGING (LEFT) Additional patient information: Focal pain. Status post left mastectomy. Subcutaneous enhancement in the upper axillaon recent MRI. TECHNIQUE: Targeted left axillary ultrasound was performed. COMPARISON: Comparison is made with relevant prior imaging. FINDINGS: Targeted left ultrasound was performed in the area of clinical concern asindicated by the patient. . The area of pain in the left axilla atapproximately 12:00 position 11 to 12 cm from expected nipple reveals nosuspicious abnormalities. Visualized left axillary lymph nodes appearnormal. The entire upper outer aspect of the left breast was scanned. Nosuspicious abnormalities are seen. Partially visualized implant isnoted. IMPRESSION: No imaging findings to account for the clinical symptoms of left axillapain. Management of pain should be based on the level of clinical concern.Negative imaging findings should not preclude biopsy of any clinicallysuspicious finding. BI-RADS 1 NEGATIVE Results and recommendations were communicated to the patient at time ofexamination. Sherlyn Arroyo MD, MPH IMG US BREAST Final Resul t documented in this encounter Visit Diagnoses Diagnosis Invasive lobular carcinoma of left breast in female Abnormal MRI, breast Invasive lobular carcinoma of left breast in female- Primary Abnormal MRI, breast Personal history of breast cancer- Primary Personal history of malignant neoplasm of breast Acquired absence of left breast and nipple documented in this encounter Care Teams Channel Man Relationship Specialty Start Date End Date Matilde Cerrato MD [address] [facility] [place] [address] PCP - General Internal Medicine 10/28/20 Sonia Herman MD [address] [place] [address] Odalis@[email or web address] Oncology 11/06/20 Sherlyn Arroyo MD, MPH [address] [place] [address] Karin@[facility] Medical Oncology 11/06/20 Marta Kumar MD [address] [address] [email or web address] Hematology and Oncology 11/06/20 Laura High MD [address] [place] [address] Department [place] [address] [email or web address]. du Radiation Oncology 12/14/20 documented as of this encounter Additional Source Comments The information contained in this document represents components of the legal health record. It is not the complete legal health record.[facility]
--- OUTSIDE RECORDS SUMMARY | 2025-09-01 11:15 | XMS_ITS | Encounter Summary ---
Author Organization [facility] Address [address] [facility] [address] [place] [address] Phone Care Team Providers Care Bottom Presser Name Role Phone Matilde Cerrato MD Primary Care Provider Self-Referred, Patient Unavailable Unavailab Sonia Kelly MD Unavailable [phone] Sherlyn Arroyo MD, MPH Unavailable [phone] Marta Kumar MD Unavailable [phone] Laura High MD Unavailable [phone] Encounter Details Date Type Department Care Team (Late st Contact Info) Description 04/23/2021 Procedure Pass [facility] Imaging Department, [facility] [place], MRI [address] [facility], Floor L1 [place] [address] Social History Tobacco Use Types Packs/Day Years [...] st Contact Info) Description 07/15/2025 Procedure Pass [facility] and Women's Operater Center [address] [facility] [address] [place] [phone] 09/02/2025 10:30 AM EST Office Visit [facility] Plastic Surgery at [place] [address] [place] [address] Yulia Mg MD [address] [place] [address] [email or web address] 01/14/2026 1:15 PM EDT Appointment [facility] and Women's Operater Center [address] [facility] [address] [place] [address] Belen Glass PA-C 450 [place] [address] [email or web address]@[facility] 01/14/2026 3:30 PM EDT Office Visit [facility], Concepcion Rojas [place] [facility], [facility] [place] [facility] [place] [address] [facility] 4th [place] [address] Sherlyn Arroyo MD, MPH 450 [place] [address] Karin@[email or web address] documented as of this encounter Visit Diagnoses Not on filedocumented in this encounter Care Teams Bottom Presser Relationship Specialty Start Date End Date Matilde Cerrato MD [address] [place] [address] PCP - General Internal Medicine 10/28/20 Self-Referred, Patient Referring Physician 10/28/2007/25 Sonia Herman MD [address] [place] [address] Odalis@[email or web address] Oncology 11/06/20 Sherlyn Arroyo MD, MPH [address] [place] [address] Karin@[email or web address] Medical Oncology 11/06/20 Marta Kumar MD [address] [place] [address] corby@[employer] Hematology and Oncology 11/06/20 Laura High MD [address] [place] [address] Department [place] [address] [email or web address] Radiation Oncology 12/14/20 documented as of this encounter Additional Source Comments The information contained in this document represents components of the legal health record. It is not the complete legal health record.[facility]
--- OUTSIDE RECORDS SUMMARY | 2025-09-01 11:18 | XMS_ITS | Encounter Summary ---
Author Organization [facility] Address [address] [employer] [facility] [address] [place] [address] Phone Care Team Providers Care Die Repair Machinist Name Role Phone Matilde Cerrato MD Primary Care Provider Sonia Herman MD Unavailable [phone] Sherlyn Arroyo MD, MPH Unavailable [phone] Marta Kumar MD Unavailable [phone] Laura High MD Unavailable [phone] Encounter Details Date Type Department Care Team (Late st Contact Info) Description 01/08/2025 Procedure Pass [facility], MRI [address] [facility] 4th [place] [address] Social History Tobacco Use Types [...] st Contact Info) Description 07/15/2025 Procedure Pass [facility] Care [place] [address] [facility] 560 [place] [address] 09/02/2025 10:30 AM EST Office Visit [facility] Plastic Surgery at [place] [address] [place] [address] Yulia Mg MD [address] [place] [address] [email or web address] u 01/14/2026 1:15 PM EDT Appointment [facility] [address] [facility] 560 [place] [address] Belen Glass PA-C 450 [place] [address] [email or web address] 01/14/2026 3:30 PM EDT Office Visit [facility], Concepcion Rojas [place] [facility], [facility] [facility] [place] [facility] [place] [address] [facility] 4th [place] [address] Sherlyn Arroyo MD, MPH 450 [place] [address] Karin@[email or web address] documented as of this encounter Visit Diagnoses Not on filedocumented in this encounter Care Teams Die Repair Machinist Relationship Specialty Start Date End Date Matilde Cerrato MD [address] [facility] [place] [address] PCP - General Internal Medicine 10/28/20 Sonia Herman MD [address] [place] [address] Odalis@[email or web address] Oncology 11/06/20 Sherlyn Arroyo MD, MPH [address] [place] [address] Karin@[email or web address] Medical Oncology 11/06/20 Marta Kumar MD [address] [place] [address] corby@[email or web address] Hematology and Oncology 11/06/20 Laura High MD [address] [place] [address] Department [place] [address] Mica@[email or web address] Radiation Oncology 12/14/20 documented as of this encounter Additional Source Comments The information contained in this document represents components of the legal health record. It is not the complete legal health record.[facility]
--- OUTSIDE RECORDS SUMMARY | 2025-09-01 11:18 | XMS_ITS | Encounter Summary ---
Author Organization [facility] Address [address] [facility] [address] [place] [address] Phone Care Team Providers Care Event Specialist Name Role Phone Matilde Cerrato MD Primary Care Provider Self-Referred, Patient Unavailable Unavailab Sonia Kelly MD Unavailable [phone] Sherlyn Arroyo MD, MPH Unavailable [phone] Marta Kumar MD Unavailable [phone] Laura High MD Unavailable [phone] Encounter Details Date Type Department Care Team (Late st Contact Info) Description 12/11/2020 Procedure Pass [facility] Imaging Department, [facility] [place], MRI [address] [facility], Floor L1 [place] [address] Social History Tobacco Use Types Packs/Day Years [...] st Contact Info) Description 07/15/2025 Procedure Pass [facility] and Women's Team Leader Center [address] [facility] [address] [place] [phone] 09/02/2025 10:30 AM EST Office Visit [facility] Plastic Surgery at [place] [address] [place] [address] Yulia Mg MD [address] [place] [address] [email or web address] 01/14/2026 1:15 PM EDT Appointment [facility] and Women's Team Leader Center [address] [facility] [address] [place] [address] Belen Glass PA-C 450 [place] [address] Williams@[facility] 01/14/2026 3:30 PM EDT Office Visit [facility], Concepcion Rojas [place] [facility], Tia-Kiel Cancer [place] at [place] [address] [facility] 4th [place] [address] Sherlyn Arroyo MD, MPH 450 [place] [address] Karin@[email or web address] documented as of this encounter Visit Diagnoses Not on filedocumented in this encounter Care Teams Event Specialist Relationship Specialty Start Date End Date Matilde Cerrato MD [address] [place] [address] PCP - General Internal Medicine 10/28/20 Self-Referred, Patient Referring Physician 10/28/2007/25 Sonia Herman MD [address] [place] [address] Odalis@[email or web address] Oncology 11/06/20 Sherlyn Arroyo MD, MPH [address] [place] [address] Karin@[facility] Medical Oncology 11/06/20 Marta Kumar MD [address] [place] [address] corby@[email or web address] Hematology and Oncology 11/06/20 Laura High MD [address] [place] [address] Department of [place] [address] Mica@[facility] Radiation Oncology 12/14/20 documented as of this encounter Additional Source Comments The information contained in this document represents components of the legal health record. It is not the complete legal health record.[facility]
--- OUTSIDE RECORDS SUMMARY | 2025-09-01 11:18 | XMS_ITS | Encounter Summary ---
Author Organization [facility] Address [address] [facility] [address] [place] [address] Phone Care Team Providers Care Pharmacy Laboratory Technician Name Role Phone Matilde Cerrato MD Primary Care Provider Self-Referred, Patient Unavailable Unavailab Sonia Kelly MD Unavailable [phone] Sherlyn Arroyo MD, MPH Unavailable [phone] Marta Kumar MD Unavailable [phone] Laura High MD Unavailable [phone] Encounter Details Date Type Department Care Team (Late st Contact Info) Description 12/02/2022 Procedure Pass [facility], [facility] [address] [facility] 4th [place] [address] Social History Tobacco Use Types Packs/Day Years [...] st Contact Info) Description 07/15/2025 Procedure Pass [facility] and Women's Chair And Couch Maker Center [address] [facility] [address] [place] [address] 09/02/2025 10:30 AM EST Office Visit [facility] Plastic Surgery at [place] [address] [place] [address] Yulia Mg MD [address] [place] [address] [email or web address] 01/14/2026 1:15 PM EDT Appointment Sal and Women's Chair And Couch Maker Center [address] [facility] [address] [place] [address] Belen Glass PA-C 450 [place] [address] Williams@[facility] 01/14/2026 3:30 PM EDT Office Visit [facility], Concepcion Rojas [place] [facility], T[facility] [place] [facility] [place] [address] [facility] 4th [place] [address] Sherlyn Arroyo MD, MPH 450 [place] [address] Karin@[email or web address] documented as of this encounter Visit Diagnoses Not on filedocumented in this encounter Care Teams Pharmacy Laboratory Technician Relationship Specialty Start Date End Date Matilde Cerrato MD [address] [facility] [place] [address] PCP - General Internal Medicine 10/28/20 Self-Referred, Patient Referring Physician 10/28/2007/25 Sonia Herman MD [address] [place] [address] Odalis@[facility] Oncology 11/06/20 Sherlyn Arroyo MD, MPH [address] [place] [address] Karin@[email or web address] Medical Oncology 11/06/20 Marta Kumar MD [address] [place] [address] corby@[email or web address] Hematology and Oncology 11/06/20 Laura High MD [address] [place] [address] Department [place] [address] Mica@[email or web address] Radiation Oncology 12/14/20 documented as of this encounter Additional Source Comments The information contained in this document represents components of the legal health record. It is not the complete legal health record.[facility]
--- OUTSIDE RECORDS SUMMARY | 2025-09-01 11:18 | XMS_ITS | Encounter Summary ---
Author Organization [facility] Address [address] [facility] [address] [place] [address] Phone Care Team Providers Care Stunner And Shackler Name Role Phone Matilde Cerrato MD Primary Care Provider Self-Referred, Patient Unavailable Unavailab Sonia Kelly MD Unavailable [phone] Sherlyn Arroyo MD, MPH Unavailable [phone] Marta Kumar MD Unavailable [phone] Laura High MD Unavailable [phone] Encounter Details Date Type Department Care Team (Late Contact Info) Description 03/25/2021 Procedure Pass [facility] 1st floor 1153 [place] [address] Social History Tobacco Use Types Packs/Day Years [...] (Late Contact Info) Description 07/15/2025 Procedure Pass [facility] and Women's Industrial Refrigeration Mechanic Center [address] [facility] [address] [place] [address] 09/02/2025 10:30 AM EST [facility] at [place] [address] [place] [address] Yulia Mg MD [address] [place] [address] [email or web address] 01/14/2026 1:15 PM EDT Appointment [facility] and Women's Industrial Refrigeration Mechanic Center [address] [facility] [address] [place] [address] Belen Galss PA-C 450 [place] [address] Williams@[email or web address] 01/14/2026 3:30 PM EDT Office Visit [facility], Concepcion Rojas [place] [facility], T[facility]-[place] [facility] [place] [facility] [place] 300 [facility] 4th [place] [address] Sherlyn Arroyo MD, MPH [address] [place] [address] Karin@[email or web address] documented as of this encounter Visit Diagnoses Not on filedocumented in this encounter Care Teams Stunner And Shackler Relationship Specialty Start Date End Date Matilde Cerrato MD [address] [facility] [place] [address] PCP - General Internal Medicine 10/28/20 Self-Referred, Patient Referring Physician 10/28/2007/25 Sonia Herman MD [address] [place] [address] [email or web address]@[email or web address] Oncology 11/06/20 Sherlyn Arroyo MD, MPH [address] [place] [address] [email or web address] Medical Oncology 11/06/20 Marta Kumar MD [address] [place] [address] corby@[email or web address] Hematology and Oncology 11/06/20 Laura High MD [address] [place] [address] Department [place] [address] [email or web address] Radiation Oncology 12/14/20 documented as of this encounter Additional Source Comments The information contained in this document represents components of the legal health record. It is not the complete legal health record.[facility]
--- OUTSIDE RECORDS SUMMARY | 2025-09-01 11:18 | XMS_ITS | Encounter Summary ---
Author Organization [facility] Address [address] [place] [address] Phone Care Team Providers Care Crystal Flat Grinder Name Role Phone Matilde Cerrato MD Primary Care Provider Self-Referred, Patient Unavailable Unavailab Sonia Kelly MD Unavailable [phone] Sherlyn Arroyo MD, MPH Unavailable [phone] Marta Kumar MD Unavailable [phone] Laura High MD Unavailable [phone] Encounter Details Date Type Department Care Team (Late st Contact Info) Description 11/13/2020 Ancillary Orders [facility], Concepcion Rojas [place] [facility], [facility] [facility] [place] [address] [place] [address], 9th [place] [address] Sabino Huddleston PA-C [address] [place] [address] [email or web address] Invasive lobular carcinoma of left breast in [...] st Contact Info) Description 07/15/2025 Procedure Pass [facility] [place] [address] [facility] [address] [place] [address] 09/02/2025 10:30 AM EST Office Visit [facility] Pl[facility] at [place] [address] [place] [address] Yulia Mg MD [address] [place] [address] [email or web address] 01/14/2026 1:15 PM EDT Appointment [facility] 850 [facility] 560 [place] [address] Belen Glass PA-C 450 [place] [address] [email or web address] 01/14/2026 3:30 PM EDT Office Visit [facility], [facility], [facility] [place] [facility] [place] 300 [facility] 4th [place] [address] Sherlyn Arroyo MD, MPH 450 [place] [address] [email or web address] documented as of this encounter Results * (ABNORMAL) BI US BREAST LIMITED (RIGHT) (11/13/2020 3:42 PM EST) Anatomical Region Laterality Modality Breast Right, Breast Bilateral Right U ltrasound 11/13/2020 3:32 PM EST Impressions 11/13/2020 3:55 [...] findings are present in the right breast. us Sonia Herman MD IM US BREAST Final Result documented in this encounter Visit Diagnoses Diagnosis Invasive lobular carcinoma of left breast in female Invasive lobular carcinoma of left breast in female Personal history of breast cancer- Primary Personal history of malignant neoplasm of breast Acquired absence of left breast and nipple documented in this encounter Care Teams Crystal Flat Grinder Relationship Specialty Start Date End Date Matilde Cerrato MD [address] [place] [address] PCP - General Internal Medicine 10/28/20 Self-Referred, Patient Referring Physician 10/28/2007/25 Sonia Herman MD [address] [place] [address] Odalis@[email or web address] Oncology 11/06/20 Sherlyn Arroyo MD, MPH [address] [place] [address] [email or web address] Medical Oncology 11/06/20 Marta Kumar MD [address] [place] [address] [email or web address] Hematology and Oncology 11/06/20 Laura High MD [address] [place] [address] Department [place] [address] [email or web address] Radiation Oncology 12/14/20 documented as of this encounter Additional Source Comments The information contained in this document represents components of the legal health record. It is not the complete legal health record.[facility]
--- OUTSIDE RECORDS SUMMARY | 2025-09-01 11:18 | XMS_ITS | Encounter Summary ---
Author Organization [facility] Address [address] [facility] [address] [place] [address] Phone Care Team Providers Care Intelligence Specialist Name Role Phone Matilde Cerrato MD Primary Care Provider Sonia Herman MD Unavailable [phone] Sherlyn Arroyo MD, MPH Unavailable [phone] Marta Kumar MD Unavailable [phone] Laura High MD Unavailable [phone] Encounter Details Date Type Department Care Team (Late st Contact Info) Description 07/26/2023 Procedure Pass [facility], MRI 300 [facility] 4th [place], [place] [id number] Social History Tobacco Use Types Packs/Day Years [...] Description 07/15/2025 Procedure Pass [facility] [place] 850 [facility] 560 [place] [address] 09/02/2025 10:30 AM EST Office Visit [facility] Plastic Surgery at [place] [address] [place] [address] Yulia Mg MD 115[address] [facility] [address] [place] [address] [email or web address] 01/14/2026 1:15 PM EDT Appointment [facility] 850 [facility] 560 [place] [address] Belen Glass PA-C 450 [place] [address] [email or web address] 01/14/2026 3:30 PM EDT Office Visit [facility], Concepcion Rojas [place] [facility], [facility] [facility] [place] [facility] [place] [address] [facility] [address] [place] [address] Sherlyn Arroyo MD, MPH 450 [place] [address] [email or web address] documented as of this encounter Visit Diagnoses Not on filedocumented in this encounter Care Teams Intelligence Specialist Relationship Specialty Start Date End Date Matilde Cerrato MD [address] [place] [address] PCP - General Internal Medicine 10/28/20 Sonia Herman MD [address] [place] [address] [email or web address] Oncology 11/06/20 Sherlyn Arroyo MD, MPH [address] [place] [address] [email or web address] Medical Oncology 11/06/20 Marta Kumar MD [address] [place] [address] [email or web address] Hematology and Oncology 11/06/20 Laura High MD [address] [place] [address] Department [place] [address] [email or web address] Radiation Oncology 12/14/20 documented as of this encounter Additional Source Comments The information contained in this document represents components of the legal health record. It is not the complete legal health record.[facility]
--- OUTSIDE RECORDS SUMMARY | 2025-09-01 11:18 | XMS_ITS | Encounter Summary ---
Author Organization [facility] Address [address] [facility] [address] [place] [address] Phone Care Team Providers Care Surgical Physician Assistant Name Role Phone Matilde Cerrato MD Primary Care Provider Self-Referred, Patient Unavailable Unavailab Sonia Kelly MD Unavailable [phone] Sherlyn Arroyo MD, MPH Unavailable [phone] Marta Kumar MD Unavailable [phone] Laura High MD Unavailable [phone] Encounter Details Date Type Department Care Team (Late Contact Info) Description 11/13/2020 Procedure Pass [facility] 115[address] [facility] [address] [place] [address] Social History Tobacco Use Types Packs/Day Years [...] (Late Contact Info) Description 07/15/2025 Procedure Pass [facility] 850 [facility] [address] [place] [address] 09/02/2025 10:30 AM EST Office Visit [facility] Pl[facility] Surgery at [place] [address] [place] [address] Yulia Mg MD [address] [place] [address] [email or web address] 01/14/2026 1:15 PM EDT Appointment [facility] 850 [facility] [address] [place] [address] Belen Glass PA-C 450 [place] [address] Williams@[email or web address] 01/14/2026 3:30 PM EDT Office Visit [facility], Concepcion Rojas [place] [facility], [facility] [place] [facility] [place] 300 [facility] 4th [place] [address] Sherlyn Arroyo MD, MPH 450 [place] [address] [email or web address] documented as of this encounter Visit Diagnoses Not on filedocumented in this encounter Care Teams Surgical Physician Assistant Relationship Specialty Start Date End Date Matilde Cerrato MD [address] [facility] [place] [address] PCP - General Internal Medicine 10/28/20 Self-Referred, Patient Referring Physician 10/28/2007/25 Sonia Herman MD [address] [place] [address] Odalis@[email or web address] Oncology 11/06/20 Sherlyn Arroyo MD, MPH [address] [place] [address] [email or web address] Medical Oncology 11/06/20 Marta Kumar MD [address] [place] [address] corby@[email or web address] Hematology and Oncology 11/06/20 Laura High MD [address] [place] [address] Department [place] [address] [email or web address] Radiation Oncology 12/14/20 documented as of this encounter Additional Source Comments The information contained in this document represents components of the legal health record. It is not the complete legal health record.[facility]
--- OUTSIDE RECORDS SUMMARY | 2025-09-01 11:19 | XMS_ITS | Encounter Summary ---
Author Organization [facility] Address [address] [facility] [address] [place] [address] Phone Care Team Providers Care Hands Hanger Name Role Phone Matilde Cerrato MD Primary Care Provider Self-Referred, Patient Unavailable Unavailab Sonia Kelly MD Unavailable [phone] Sherlyn Arroyo MD, MPH Unavailable [phone] Marta Kumar MD Unavailable [phone] Laura High MD Unavailable [phone] Encounter Details Date Type Department Care Team (Late st Contact Info) Description 04/28/2021 Procedure Pass [facility] Imaging Department, [facility] [place], MRI 450 [facility], Floor [address]1 [place] [address] Social History Tobacco Use Types Packs/Day Years [...] Pass [facility] 850 [facility] [address] [place] [phone] 09/02/2025 10:30 AM EST Office Visit [facility] Pl[facility] Surgery at [place] [address] [place] [address] Yulia Mg MD [address] [place] [address] [email or web address] 01/14/2026 1:15 PM EDT Appointment [facility] 850 [facility] [address] [place] [address] Belen Glass PA-C 450 [place] [address] [email or web address] 01/14/2026 3:30 PM EDT Office Visit [facility], Concepcion Rojas [place] [facility], [facility] [place] [facility] [place] 300 [facility] 4th [place] [address] Sherlyn Arroyo MD, MPH 450 [place] [address] Karin@[email or web address] documented as of this encounter Visit Diagnoses Not on filedocumented in this encounter Care Teams Hands Hanger Relationship Specialty Start Date End Date Matilde Cerrato MD 1961 [facility] [place] [address] PCP - General Internal Medicine 10/28/20 Self-Referred, Patient Referring Physician 10/28/2007/25 Sonia Herman MD [address] [place] [address] [email or web address] Oncology 11/06/20 Sherlyn Arroyo MD, MPH [address] [place] [address] [email or web address] Medical Oncology 11/06/20 Marta Kumar MD [address] [place] [address] [email or web address] Hematology and Oncology 11/06/20 Laura High MD [address] [place] [address] Department [place] [address] [email or web address] Radiation Oncology 12/14/20 documented as of this encounter Additional Source Comments The information contained in this document represents components of the legal health record. It is not the complete legal health record.[facility]
--- OUTSIDE RECORDS SUMMARY | 2025-09-01 11:19 | XMS_ITS | Encounter Summary ---
Author Organization [facility] Address [address] [facility] [address] [place] [address] Phone Care Team Providers Care Head Screen Worker Name Role Phone Matilde Cerrato MD Primary Care Provider Self-Referred, Patient Unavailable Unavailab Sonia Kelly MD Unavailable [phone] Sherlyn Arroyo MD, MPH Unavailable [phone] Marta Kumar MD Unavailable [phone] Laura High MD Unavailable [phone] Encounter Details Date Type Department Care Team (Late Contact Info) Description 12/11/2020 Procedure Pass [facility] [place], Mammography, [place] Imaging Department [address] [place] [address] Social History Tobacco Use Types Packs/Day Years [...] (Late Contact Info) Description 07/15/2025 Procedure Pass [facility] and [facility] Personal [facility] [address] [facility] [address] [place] [address] 09/02/2025 10:30 AM EST Office [facility] [place] [address] [place] [address] Yulia Mg MD [address] [place] [address] [email or web address] 01/14/2026 1:15 PM EDT Appointment [facility] and [facility] [address] [facility] [address] [place] [address] Belen Glass PA-C 450 [place] [address] Williams@[email or web address] 01/14/2026 3:30 PM EDT Office Visit [facility], Concepcion Rojas [place] [facility], [facility] [place] [facility] [place] 300 [facility] 4th [place] [address] Sherlyn Arroyo MD, MPH 450 [place] [address] Karin@[email or web address] documented as of this encounter Visit Diagnoses Not on filedocumented in this encounter Care Teams Head Screen Worker Relationship Specialty Start Date End Date Matilde Cerrato MD [address] [facility] [place] [address] PCP - General Internal Medicine 10/28/20 Self-Referred, Patient Referring Physician 10/28/2007/25 Sonia Herman MD [address] [place] [address] Odalis@[email or web address] Oncology 11/06/20 Sherlyn Arroyo MD, MPH [address] [place] [address] Karin@[email or web address] Medical Oncology 11/06/20 Marta Kumar MD [address] [place] [address] [email or web address] Hematology and Oncology 11/06/20 Laura High MD [address] [place] [address] Department [place] [address] [email or web address] Radiation Oncology 12/14/20 documented as of this encounter Additional Source Comments The information contained in this document represents components of the legal health record. It is not the complete legal health record.[facility]
== END 2025-09-01 11:33 | disposition home or self-care (01) ==
LOC: HO.HMCC 09:39
PROVIDERS: PCP Internal Medicine; Visit Provider Internal Medicine
DX: Z12.4 Encounter for screening for malignant neoplasm of cervix (principal); J45.20 Mild intermittent asthma, uncomplicated; E78.2 Mixed hyperlipidemia; E03.9 Hypothyroidism, unspecified; F41.1 Generalized anxiety disorder; M85.89 Other specified disorders of bone density and structure, multiple sites; Z00.01 Encounter for general adult medical examination with abnormal findings; Z85.3 Personal history of malignant neoplasm of breast

== ENCOUNTER 2025-09-01 09:38 | Outpatient (REF) | payer BC, SELFPAY | END 2025-09-01 09:39 | disposition home or self-care (01) | LOC: HO.LNP 09:38 | PROVIDERS: PCP Internal Medicine; Visit Provider Internal Medicine | DX: Z00.01 Encounter for general adult medical examination with abnormal findings (principal); Z12.4 Encounter for screening for malignant neoplasm of cervix; J45.20 Mild intermittent asthma, uncomplicated; E78.2 Mixed hyperlipidemia; E03.9 Hypothyroidism, unspecified; F41.1 Generalized anxiety disorder; M85.89 Other specified disorders of bone density and structure, multiple sites; Z79.890 Hormone replacement therapy; Z79.899 Other long term (current) drug therapy; Z85.3 Personal history of malignant neoplasm of breast | CPT/HCPCS: 87626; 88175; 96127 ==